=== PATIENT | female | born 1935 | race Caucasian/White ===

== ENCOUNTER 2016-08-06 00:17 | Inpatient (IN) | payer MEDICARE, MEDICAID ==
[2016-08-06] MEDS ORDERED: Albuterol-Ipratrop 3 mg / 0.5 (3 ml) UD ONE (00:21)
[2016-08-06] MEDS ORDERED: Albuterol-Ipratrop 3 mg / 0.5 (3 ml) UD INH STA ×2 (00:33→00:36)
[2016-08-06] MEDS ORDERED: Moxifloxacin IV 400mg/250ml NS 250 ML IV ONE (00:41)
--- NOTE | 2016-08-06 00:48 | C.PDOC ---
History Of Present Illness 81 year old female presents to the ED with daughter from [facility] with complaints of shortness of breath and wheezing. Patient has a history of advanced dementia and COPD. Patient's daughter denies any other complaints at this time. Time Seen by Provider: 08/06/16 00:32 Chief Complaint (Nursing): Respiratory Distress History Per: Patient, Family (daughter ) History/Exam Limitations: no limitations Onset/Duration Of Symptoms: Hrs Current Symptoms Are (Timing): Still Present Recent travel outside of the [place]: No Additional History Per: Half-Way Past Medical History Reviewed: Historical Data, Nursing Documentation, Vital Signs Vital Signs: Last Vital Signs Temp Pulse 81 08/06/16 00:38 Resp 40 H 08/06/16 00:29 BP 169/93 H 08/06/16 00:18 Pulse Ox 100 08/06/16 00:51 - Medical History PMH: Anxiety, Asthma, COPD, Dementia, HTN Family History: States: Unknown Family Hx - Social History Hx Alcohol Use: No Hx Substance Use: No - Immunization History Hx Tetanus Toxoid Vaccination: No Hx Influenza Vaccination: No Review Of Systems Constitutional: Negative for: Fever, Chills, Sweats Cardiovascular: Negative for: Palpitations Respiratory: Positive for: Shortness of Breath, Wheezing Gastrointestinal: Negative for: Nausea, Vomiting, Abdominal Pain, Diarrhea Physical Exam - Physical Exam Appears: Chronically Ill, Other (lethargic ) Skin: Warm, Dry Head: Other (Bitemporal wasting, icteric ) Oral Mucosa: Moist Neck: Supple Cardiovascular: Rhythm Regular Respiratory: No Rales, Rhonchi (scattered rhonci ), No Stridor, Wheezing, Other (poor air movement ) Gastrointestinal/Abdominal: Soft, No Tenderness, No Distention, No Guarding, No Rebound Extremity: No Tenderness Neurological/Psych: Other (awake, alert, unclear regarding orientation. ) ED Course And Treatment ECG: Interpreted By Me ECG Rhythm: Sinus Bradycardia ECG Interpretation: Normal Rate From EC (? peaked T^'s throughout) O2 Sat by Pulse Oximetry: 100 Pulse Ox Interpretation: Normal - Radiology CXR: Interpreted by Me CXR Interpretation: Yes: No Acute Disease, Other (small L effusion) Medical Decision Making Medical Decision Making: Discussed with daughter to reassure the patient is full code. Avelox in case of NH acquired lung infection (allergic to PCN, so no Zosyn) Disposition Doctor Will See Patient In The: Hospital - Disposition Disposition Time: 01:00 Condition: FAIR - Clinical Impression Clinical Impression: COPD (chronic obstructive pulmonary disease) - Scribe Statement The provider has reviewed the documentation as recorded by the Scribe Emerita Cerda All medical record entries made by the Scribe were at my direction and personally dictated by me. I have reviewed the chart and agree that the record accurately reflects my personal performance of the history, physical exam, medical decision making, and the department course for this patient. I have also personally directed, reviewed, and agree with the discharge instructions and disposition. Physician Patient Turnover Patient Signed Over To: Nixon Delcid Handoff Comments: dispo for adm to [facility] when w/u completed.
[2016-08-06 00:58] LABS: ABG ALLEN TEST POS; ARTERIAL BLOOD HGB O2 SAT 97.1 % (95.0-98.0); CARBOXYHEMOGLOBIN 1.5 % (0.5-1.5); DRAW SITE RRAD; HHB 0.2 % (0.0-5.0); METHEMOGLOBIN 1.2 % (0.0-3.0)
[2016-08-06 01:09] LABS: BASO # 0.1 K/uL (0.0-0.2); BASO % 0.4 % (0.0-2.0); EOS # 0.2 K/uL (0.0-0.7); EOS % 1.4 % (0.0-4.0); HEMATOCRIT 35.6 % (34.0-47.0); LYMPH # 3.3 K/uL (1.0-4.3); MEAN CELL VOLUME 83.9 fL (81.0-99.0); MEAN PLATELET VOLUME 8.2 fL (7.2-11.7); MONO # 0.8 K/uL (0.0-0.8); MONO % 4.8 % (0.0-10.0); RED CELL DISTRIBUTION WIDTH 13.1 % (11.5-14.5); WHITE BLOOD COUNT 15.7 K/uL (4.8-10.8)
[2016-08-06 01:18] LABS: CHLORIDE 91 mmol/L (98-107); SODIUM 131 mmol/L (132-148)
[2016-08-06 01:20] LABS: AST/SGOT 29 U/L (14-36); BILIRUBIN,TOTAL 0.6 mg/dL (0.2-1.3); CARBON DIOXIDE 26 mmol/L (22-30); GFR AFRICAN-AMERICAN > 60
[2016-08-06 01:21] LABS: ALB/GLOB RATIO 1.3 (1.0-2.1); ALKALINE PHOSPHATASE 57 U/L (38-126); ALT/SGPT 13 U/L (9-52); BLOOD UREA NITROGEN 20 mg/dL (7-17); CALCIUM 8.9 mg/dl (8.6-10.4); GLUCOSE,RANDOM 213 mg/dL (65-105); TOTAL PROTEIN 7.7 g/dL (6.3-8.3)
[2016-08-06] MEDS ORDERED: Sod Polystyrene Sulf 15 gm/60 ml Oral Susp PO ONE (01:25)
[2016-08-06] MEDS ORDERED: Calcium Gluconate 4.65 MEQ in Dextrose 5% In Water 100 ML IVPB ONE (01:25)
[2016-08-06] MEDS ORDERED: Moxifloxacin IV 400mg/250ml NS 250 ML IVPB ONE (01:26)
[2016-08-06] MEDS ORDERED: (Novolin R) Insulin Human Regular 100 units/ml vial IV ONE (01:26)
[2016-08-06] MEDS ORDERED: Dextrose 50% SYRINGE Inj (50 ml) IV STA (01:26)
[2016-08-06] MEDS ORDERED: (Novolin R) Insulin Human Regular 100 units/ml vial ONE (01:45)
[2016-08-06] MEDS ORDERED: Sod Polystyrene Sulf 15 gm/60 ml Oral Susp ONE (01:45)
[2016-08-06] MEDS ORDERED: Dextrose 50% SYRINGE Inj (50 ml) ONE (01:46)
[2016-08-06] MEDS ORDERED: Calcium Gluconate 4.65 mEq/10 ml Inj ONE (01:46)
[2016-08-06] MEDS ORDERED: Albuterol-Ipratrop 3 mg / 0.5 (3 ml) UD INH SCH (02:30)
[2016-08-06] MEDS ORDERED: (Novolog) Insulin Aspart, Recombinant 100 u/ml 10 ml vial SC SCH (02:30)
--- NOTE | 2016-08-06 02:37 | CP.PCM.CON ---
History of Present Illness - History of Present Illness History of Present Illness: 80yo F. PMHx DM type 2, HTN, dyslipidemia, Alzheimer's dementia, arthritis, asthma/COPD. p/w acute hypercarbic respiratory failure secondary to acute exacerbation of chronic obstructive pulmonary disease. Requiring BIPAP, admit to ICU. Review of Systems - Review of Systems Systems not reviewed;Unavailable: Altered Mental Status Past Patient History - Past Medical History & Family History Past Medical History?: Yes - Past Social History Smoking Status: Never Smoked - CARDIAC Hx Hypertension: Yes - PULMONARY Hx Asthma: Yes Hx Chronic Obstructive Pulmonary Disease (COPD): Yes - NEUROLOGICAL Hx Dementia: Yes - RENAL Other/Comment: HX UTI - ENDOCRINE/METABOLIC Hx Diabetes Mellitus Type 2: Yes - MUSCULOSKELETAL/RHEUMATOLOGICAL Hx Back Pain: Yes Hx Falls: Yes - PSYCHIATRIC Hx Anxiety: Yes Hx Substance Use: No - SURGICAL HISTORY Other/Comment: 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 - ANESTHESIA Hx Anesthesia: Yes Hx Anesthesia Reactions: No Meds Allergies/Adverse Reactions: Allergies Allergy/AdvReac Type Severity Reaction Status Date / Time codeine Allergy Verified 10/17/15 18:04 Penicillins Allergy Verified 10/17/15 18:04 - Medications Medications: Current Medications Albuterol/Ipratropium (Duoneb 3 Mg/0.5 Mg (3 Ml) Ud) 3 ml INH Q4H TANA Carvedilol (Coreg) 6.25 mg PO BID TANA Ferrous Sulfate (Feosol) 325 mg PO TID TANA Moxifloxacin HCl (Avelox Iv 400mg/250ml Ns) 250 mls @ 167 mls/hr IVPB Q24H TANA Sodium Chloride (Sodium Chloride 0.9%) 1,000 mls @ 100 mls/hr IV .Q10H TANA Insulin Aspart (Novolog) 0 unit SC Q6H TANA PRN Reason: Protocol Memantine (Namenda) 10 mg PO DAILY TANA Methylprednisolone (Solu-Medrol) 40 mg IV Q8H TANA Montelukast Sodium (Singulair) 10 mg PO HS TANA Physical Exam - Constitutional Appears: Well - Head Exam Head Exam: ATRAUMATIC, NORMAL INSPECTION, NORMOCEPHALIC - Eye Exam Eye Exam: EOMI, Normal appearance, PERRL Pupil Exam: NORMAL ACCOMODATION, PERRL - Respiratory Exam Respiratory Exam: Wheezes, NORMAL BREATHING PATTERN - Cardiovascular Exam Cardiovascular Exam: REGULAR RHYTHM - GI/Abdominal Exam GI & Abdominal Exam: Normal Bowel Sounds, Soft. absent: Tenderness - Neurological Exam Neurological exam: Alert, Altered - Psychiatric Exam Psychiatric exam: Flat Affect Results - Vital Signs Recent Vital Signs: Last Vital Signs Temp 98 F 08/06/16 02:24 Pulse 86 08/06/16 02:24 Resp 21 08/06/16 02:24 BP 131/59 L 08/06/16 02:24 Pulse Ox 100 08/06/16 02:24 - Labs Result Diagrams: 08/06/16 00:56 08/06/16 00:56 Labs: Laboratory Results - last 24 hr 08/06/16 08/06/16 08/06/16 00:54 00:56 00:58 WBC 15.7 H RBC 4.25 Hgb 11.0 Hct 35.6 MCV 83.9 D MCH 26.0 L MCHC 31.0 L RDW 13.1 Plt Count 193 MPV 8.2 Neut % (Auto) 72.4 Lymph % (Auto) 21.0 [place] % (Auto) 4.8 Eos % (Auto) 1.4 Baso % (Auto) 0.4 Neut # 11.3 H Lymph # 3.3 [place] # 0.8 Eos # 0.2 Baso # 0.1 Puncture Site Rrad pCO2 89 H* pO2 437 H HCO3 27.0 ABG pH 7.18 L* ABG Total CO2 35.9 H ABG O2 Saturation 99.8 H ABG Base Excess 2.7 ABG Hemoglobin 11.3 L ABG Carboxyhemoglobin 1.5 POC ABG HHb (Measured) 0.2 ABG Methemoglobin 1.2 Bobby Test Pos A-a O2 Difference 165.0 Respiratory Index 0.4 Hgb O2 Saturation 97.1 FiO2 100.0 Inspiratory BiPAP 12 Expiratory BiPAP 6 Crit Value Called To Tan arteaga rn Crit Value Called By Karuna bolanos Crit Value Read Back Y Blood Gas Notified Time 100 Sodium 131 L Potassium 6.0 H Chloride 91 L Carbon Dioxide 26 Anion Gap 20 BUN 20 H Creatinine 0.6 L Est GFR ( Amer) > 60 Est GFR (Non-Af Amer) > 60 Random Glucose 213 H Calcium 8.9 Total Bilirubin 0.6 AST 29 ALT 13 Alkaline Phosphatase 57 Troponin I < 0.0120 NT-Pro-B Natriuret Pep 537 Total Protein 7.7 Albumin 4.4 Globulin 3.3 Albumin/Globulin Ratio 1.3 Influenza Typ A,B (EIA) Negative for flu a/b Assessment & Plan (1) Chronic obstructive lung disease Assessment and Plan: 80yo F. PMHx DM type 2, HTN, dyslipidemia, Alzheimer's dementia, arthritis, asthma/COPD. p/w acute hypercarbic respiratory failure secondary to acute exacerbation of chronic obstructive pulmonary disease. Requiring BIPAP, admit to ICU. Neuro: acute metabolic encephalopathy secondary to hypercapnia Pulm: acute hypercapnic respiratory failure secondary to acute exacerbation of chronic obstructive pulmonary disease. Steroids, Duonebs, BIPAP. CV: hemodynamically stable, continue Coreg bid. holding Lisinopril with hyperkalemia. Renal: hyperkalemia, received kayexalate, albuterol, insulin and d50 in ED, will recheck BMP. NS@100 Endo: DM type 2, short acting insulin sliding scale, holding Januvia and Metformin. GI: NPO while on BIPAP. ID: leucocytosis but no obvious source of sepsis. currently CXR clear, f/u urinalysis. Empiric tx with Moxifloxacin. DVT proph - lovenox GI proph - not currently indicated Full code Critical Care time 45 minutes Status: Acute
[2016-08-06] MEDS ORDERED: MethylPREDNISolone 40 mg Vial IV SCH (03:00)
[2016-08-06] MEDS: Sodium Chloride 0.9% 1,000 ML IV SCH ×2 (03:30→14:00)
[2016-08-06] MEDS: MethylPREDNISolone 40 mg Vial IVP SCH ×3 (04:45→20:45)
[2016-08-06 08:14] LABS: RBC URINE 12 /hpf (0-3); URINE BACTERIA OCC (<OCC); URINE BILIRUBIN NEGATIVE (NEGATIVE); URINE BLOOD 3+ (NEGATIVE); URINE COLOR Yellow (YELLOW); URINE GLUCOSE (UA) 3+ mg/dL (Normal); URINE KETONE NEGATIVE (NEGATIVE); URINE LEUKOCYTE ESTERASE 3+ Leu/uL (Negative); URINE PROTEIN NEGATIVE (NEGATIVE); URINE UROBILINOGEN NORMAL mg/dL (0.2-1.0); WBC CLUMPS MOD /hpf; WBC URINE 155 /hpf (0-5)
[2016-08-06 08:18] LABS: ABG ALLEN TEST POS; ARTERIAL BLOOD HGB O2 SAT 95.5 % (95.0-98.0); CARBOXYHEMOGLOBIN 1.5 % (0.5-1.5); DRAW SITE RR
[2016-08-06] MEDS: (Novolog) Insulin Aspart, Recombinant 100 u/ml 10 ml vial SC SCH ×3 (08:37→17:12)
--- NOTE | 2016-08-06 10:00 | RAD ---
PROCEDURE: CHEST RADIOGRAPH, 1 VIEW HISTORY: SOB COMPARISON: Comparison 11/03/2015 FINDINGS: LUNGS: Mild linear atelectasis and or scarring left lung base PLEURA: No pneumothorax or pleural fluid seen. CARDIOVASCULAR: Mild cardiomegaly OSSEOUS STRUCTURES: Stable right shoulder replacement. High-riding left humeral head likely related to chronic rotator cuff injury VISUALIZED UPPER ABDOMEN: Normal. OTHER FINDINGS: None. IMPRESSION: Linear atelectasis and or scarring
[2016-08-06 10:35] LABS: BASO % 0.4 % (0.0-2.0); HEMATOCRIT 35.7 % (34.0-47.0); LYMPH # 1.1 K/uL (1.0-4.3); LYMPH % 10.5 % (20.0-40.0); MEAN CELL VOLUME 82.4 fL (81.0-99.0); MEAN CORPUSCULAR HEMOGLOBIN 26.2 pg (27.0-31.0); MEAN CORPUSCULAR HGB CONC 31.8 g/dL (33.0-37.0); MEAN PLATELET VOLUME 7.8 fL (7.2-11.7); MONO # 0.1 K/uL (0.0-0.8); MONO % 0.7 % (0.0-10.0); RED CELL DISTRIBUTION WIDTH 12.7 % (11.5-14.5); WHITE BLOOD COUNT 10.8 K/uL (4.8-10.8)
[2016-08-06] MEDS: Enoxaparin 40 mg Syringe SC SCH (10:43)
[2016-08-06 10:46] LABS: CHLORIDE 94 mmol/L (98-107); SODIUM 132 mmol/L (132-148)
[2016-08-06 10:48] LABS: GFR AFRICAN-AMERICAN > 60
[2016-08-06 10:49] LABS: ALB/GLOB RATIO 1.3 (1.0-2.1); ALKALINE PHOSPHATASE 54 U/L (38-126); ALT/SGPT 20 U/L (9-52); AST/SGOT 35 U/L (14-36); BILIRUBIN,TOTAL 0.9 mg/dL (0.2-1.3); BLOOD UREA NITROGEN 18 mg/dL (7-17); CARBON DIOXIDE 25 mmol/L (22-30); GLUCOSE,RANDOM 237 mg/dL (65-105); PHOSPHOROUS 2.7 mg/dL (2.5-4.5); POTASSIUM 5.9 mmol/L (3.6-5.2); TOTAL PROTEIN 7.7 g/dL (6.3-8.3)
[2016-08-06 10:50] LABS: CALCIUM 9.2 mg/dl (8.6-10.4); MAGNESIUM 1.3 mg/dL (1.6-2.3)
[2016-08-06] MEDS: Albuterol-Ipratrop 3 mg / 0.5 (3 ml) UD INH SCH ×4 (11:15→23:52)
[2016-08-06 12:47] LABS: ABG ALLEN TEST POS; DRAW SITE RR
[2016-08-07] MEDS: Sodium Chloride 0.9% 1,000 ML IV SCH ×2 (00:18→09:19)
[2016-08-07] MEDS: (Novolog) Insulin Aspart, Recombinant 100 u/ml 10 ml vial SC SCH ×5 (00:21→21:53)
[2016-08-07] MEDS: Moxifloxacin IV 400mg/250ml NS 250 ML IVPB SCH (02:12)
[2016-08-07] MEDS: Albuterol-Ipratrop 3 mg / 0.5 (3 ml) UD INH SCH ×5 (03:01→19:44)
[2016-08-07] MEDS: MethylPREDNISolone 40 mg Vial IVP SCH ×3 (04:40→21:03)
[2016-08-07] MEDS: Enoxaparin 40 mg Syringe SC SCH (09:18)
[2016-08-07 10:22] LABS: BASO % 0.1 % (0.0-2.0); HEMATOCRIT 33.7 % (34.0-47.0); LYMPH # 1.6 K/uL (1.0-4.3); LYMPH % 9.9 % (20.0-40.0); MEAN CELL VOLUME 82.5 fL (81.0-99.0); MEAN CORPUSCULAR HEMOGLOBIN 25.5 pg (27.0-31.0); MEAN CORPUSCULAR HGB CONC 30.9 g/dL (33.0-37.0); MEAN PLATELET VOLUME 7.8 fL (7.2-11.7); MONO # 0.6 K/uL (0.0-0.8); MONO % 3.5 % (0.0-10.0); PLATELET COUNT 181 K/uL (130-400); RED CELL DISTRIBUTION WIDTH 12.6 % (11.5-14.5); WHITE BLOOD COUNT 15.9 K/uL (4.8-10.8)
[2016-08-07 10:54] LABS: CHLORIDE 96 mmol/L (98-107); POTASSIUM 3.8 mmol/L (3.6-5.2); SODIUM 136 mmol/L (132-148)
[2016-08-07 10:56] LABS: BILIRUBIN,TOTAL 0.3 mg/dL (0.2-1.3); GFR AFRICAN-AMERICAN > 60
[2016-08-07 10:57] LABS: ALB/GLOB RATIO 1.3 (1.0-2.1); ALKALINE PHOSPHATASE 53 U/L (38-126); ALT/SGPT 14 U/L (9-52); AST/SGOT 21 U/L (14-36); BLOOD UREA NITROGEN 14 mg/dL (7-17); CARBON DIOXIDE 26 mmol/L (22-30); GLUCOSE,RANDOM 225 mg/dL (65-105); PHOSPHOROUS 2.1 mg/dL (2.5-4.5); TOTAL PROTEIN 6.9 g/dL (6.3-8.3)
[2016-08-07 10:58] LABS: CALCIUM 8.8 mg/dl (8.6-10.4); MAGNESIUM 1.4 mg/dL (1.6-2.3)
[2016-08-07 11:07] LABS: NEUTROPHIL 86 % (50-75); TOTAL CELLS COUNTED 100
[2016-08-07] MEDS ORDERED: Potassium Phosphate 15 MMOLE in Dextrose 5% In Water 250 ML IVPB ONE (11:21)
--- NOTE | 2016-08-07 11:21 | CP.CCUPN ---
CCU Subjective - Physician Review Events Since Last Encounter (Free Text): 08/07/16 11:20 Patient today is off BiPAP, alert and awake. Mild expiratory wheezing noted. Cough noted, complaining of pain generalized. Denies any chest pain. Edema noted in the legs. CCU Objective - Vital Signs / Intake & Output Vital Signs (Last 4 hours): Vital Signs Temp Pulse Resp BP Pulse Ox 08/07/16 11:00 103 H 20 171/79 H 97 08/07/16 10:00 101 H 24 178/76 H 98 08/07/16 09:00 87 23 172/75 H 97 08/07/16 08:00 98.0 F 80 21 185/83 H 100 Intake and Output (Last 8hrs): Intake & Output 08/06/16 08/07/16 08/07/16 22:59 06:59 14:59 Intake Total 700 800 720 Output Total 550 1195 300 Balance 150 -395 420 Intake: Intake, IV Amount 500 800 500 Right Hand 400 Left Hand 500 800 100 Oral 200 220 Output: Urine 550 1195 300 Urethral (De Guzman) 550 1195 300 - Physical Exam Narrative Physical Exam (Free Text): 08/07/16 11:20 Chest bilateral good air entry, regular heart sound, nontender abdomen, extremities edema generalized to noted - Medications Active Medications: Active Medications Generic Name Dose Route Start Last Admin Trade Name Freq PRN Reason Stop Dose Admin Acetaminophen 650 mg 08/06/16 22:00 08/06/16 21:45 Tylenol 325mg Tab PO 650 mg Q6H PRN Administration Pain, moderate (4-7) Albuterol/Ipratropium 3 ml 08/06/16 12:00 08/07/16 11:07 Duoneb 3 Mg/0.5 Mg (3 Ml) Ud INH 3 ml RQ4 TANA Administration Amlodipine Besylate 5 mg 08/07/16 11:17 Norvasc PO 08/07/16 11:18 STAT STA Amlodipine Besylate 5 mg 08/08/16 10:00 Norvasc PO DAILY TANA Carvedilol 6.25 mg 08/06/16 10:00 08/07/16 09:18 Coreg PO 6.25 mg BID TANA Administration Enoxaparin Sodium 40 mg 08/06/16 10:00 08/07/16 09:18 Lovenox SC 40 mg DAILY TANA Administration Ferrous Sulfate 325 mg 04/22/17 10:00 08/07/16 09:18 Feosol PO 325 mg TID TANA Administration Moxifloxacin HCl 250 mls @ 167 mls/hr 08/07/16 02:30 08/07/16 02:12 Avelox Iv 400mg/250ml Ns IVPB 167 mls/hr Q24H TANA Administration Insulin Aspart 0 unit 08/06/16 06:00 08/07/16 06:00 Novolog SC 3 unit Q6 TANA Administration Protocol Memantine 10 mg 08/06/16 22:00 08/07/16 01:25 Namenda PO 10 mg HS TANA Administration Methylprednisolone 40 mg 08/07/16 10:00 08/07/16 09:18 Solu-Medrol IVP 40 mg Q12 TANA Administration Montelukast Sodium 10 mg 08/06/16 22:00 08/06/16 21:44 Singulair PO 10 mg HS TANA Administration - Patient Studies Lab Studies: Microbiology Studies 08/06/16 07:58 MRSA Culture (Admit) - Final Nose MRSA NOT DETECTED 08/06/16 Unknown Urine Culture - Preliminary Urine,De Guzman Gram Negative Magan Lab Studies 08/07/16 08/07/16 08/07/16 Range/Units 10:03 06:43 00:05 WBC 15.9 H (4.8-10.8) K/uL RBC 4.08 (3.80-5.20) Mil/uL Hgb 10.4 L (11.0-16.0) g/dL Hct 33.7 L (34.0-47.0) % MCV 82.5 (81.0-99.0) fL MCH 25.5 L (27.0-31.0) pg MCHC 30.9 L (33.0-37.0) g/dL RDW 12.6 (11.5-14.5) % Plt Count 181 (130-400) K/uL MPV 7.8 (7.2-11.7) fL Neut % (Auto) 86.5 H (50.0-75.0) % Lymph % (Auto) 9.9 L (20.0-40.0) % [place] % (Auto) 3.5 (0.0-10.0) % Eos % (Auto) 0.0 (0.0-4.0) % Baso % (Auto) 0.1 (0.0-2.0) % Neut # 13.7 H (1.8-7.0) K/uL Lymph # 1.6 (1.0-4.3) K/uL [place] # 0.6 (0.0-0.8) K/uL Eos # 0.0 (0.0-0.7) K/uL Baso # 0.0 (0.0-0.2) K/uL Neutrophils % (Manual) 86 H (50-75) % Band Neutrophils % 1 (0-2) % Lymphocytes % (Manual) 10 L (20-40) % Monocytes % (Manual) 3 (0-10) % Platelet Estimate Normal (NORMAL) Polychromasia Slight Hypochromasia (manual) Slight Poikilocytosis (manual Slight Anisocytosis (manual) Slight Ovalocytes Slight Puncture Site pCO2 (35-45) mm/Hg pO2 (80-100) mm/Hg HCO3 (21-28) mmol/L ABG pH (7.35-7.45) ABG Total CO2 (22-28) mmol/L ABG O2 Saturation (95-98) % ABG Base Excess (-2.0-3.0) mmol/L Bobby Test ABG Potassium (3.6-5.2) mmol/L A-a O2 Difference mm/Hg Respiratory Index Glucose (65-105) mg/dl Lactate (0.7-2.1) mmol/L FiO2 % Inspiratory BiPAP Expiratory BiPAP Sodium 136 (132-148) mmol/L Potassium 3.8 (3.6-5.2) mmol/L Chloride 96 L (98-107) mmol/L Carbon Dioxide 26 (22-30) mmol/L Anion Gap 18 (10-20) BUN 14 (7-17) mg/dL Creatinine 0.5 L (0.7-1.2) MG/DL Est GFR ( Amer) > 60 Est GFR (Non-Af Amer) > 60 POC Glucose (mg/dL) 250 H 263 H (65-110) mg/dL Random Glucose 225 H (65-105) mg/dL Calcium 8.8 (8.6-10.4) mg/dl Phosphorus 2.1 L (2.5-4.5) mg/dL Magnesium 1.4 L (1.6-2.3) mg/dL Total Bilirubin 0.3 (0.2-1.3) mg/dL AST 21 (14-36) U/L ALT 14 (9-52) U/L Alkaline Phosphatase 53 (38-126) U/L Total Protein 6.9 (6.3-8.3) g/dL Albumin 3.9 (3.5-5.0) g/dL Globulin 2.9 (2.2-3.9) gm/dL Albumin/Globulin Ratio 1.3 (1.0-2.1) Arterial Blood Potassium (3.6-5.2) mmol/L 08/06/16 08/06/16 08/06/16 Range/Units 17:07 12:41 11:51 WBC (4.8-10.8) K/uL RBC (3.80-5.20) Mil/uL Hgb (11.0-16.0) g/dL Hct (34.0-47.0) % MCV (81.0-99.0) fL MCH (27.0-31.0) pg MCHC (33.0-37.0) g/dL RDW (11.5-14.5) % Plt Count (130-400) K/uL MPV (7.2-11.7) fL Neut % (Auto) (50.0-75.0) % Lymph % (Auto) (20.0-40.0) % [place] % (Auto) (0.0-10.0) % Eos % (Auto) (0.0-4.0) % Baso % (Auto) (0.0-2.0) % Neut # (1.8-7.0) K/uL Lymph # (1.0-4.3) K/uL [place] # (0.0-0.8) K/uL Eos # (0.0-0.7) K/uL Baso # (0.0-0.2) K/uL Neutrophils % (Manual) (50-75) % Band Neutrophils % (0-2) % Lymphocytes % (Manual) (20-40) % Monocytes % (Manual) (0-10) % Platelet Estimate (NORMAL) Polychromasia Hypochromasia (manual) Poikilocytosis (manual Anisocytosis (manual) Ovalocytes Puncture Site Rr pCO2 52 H (35-45) mm/Hg pO2 87 (80-100) mm/Hg HCO3 27.7 (21-28) mmol/L ABG pH 7.37 (7.35-7.45) ABG Total CO2 31.7 H (22-28) mmol/L ABG O2 Saturation 98.8 H (95-98) % ABG Base Excess 3.6 H (-2.0-3.0) mmol/L Bobby Test Pos ABG Potassium 4.5 (3.6-5.2) mmol/L A-a O2 Difference 98.0 mm/Hg Respiratory Index 1.1 Glucose 260 H (65-105) mg/dl Lactate 1.3 (0.7-2.1) mmol/L FiO2 35.0 % Inspiratory BiPAP 16 Expiratory BiPAP 8 Sodium 133.0 (132-148) mmol/L Potassium (3.6-5.2) mmol/L Chloride 101.0 (98-107) mmol/L Carbon Dioxide (22-30) mmol/L Anion Gap (10-20) BUN (7-17) mg/dL Creatinine (0.7-1.2) MG/DL Est GFR ( Amer) Est GFR (Non-Af Amer) POC Glucose (mg/dL) 240 H 266 H (65-110) mg/dL Random Glucose (65-105) mg/dL Calcium (8.6-10.4) mg/dl Phosphorus (2.5-4.5) mg/dL Magnesium (1.6-2.3) mg/dL Total Bilirubin (0.2-1.3) mg/dL AST (14-36) U/L ALT (9-52) U/L Alkaline Phosphatase (38-126) U/L Total Protein (6.3-8.3) g/dL Albumin (3.5-5.0) g/dL Globulin (2.2-3.9) gm/dL Albumin/Globulin Ratio (1.0-2.1) Arterial Blood Potassium 4.5 (3.6-5.2) mmol/L Laboratory Results - last 24 hr 08/06/16 08/06/16 08/06/16 11:51 12:41 17:07 WBC RBC Hgb Hct MCV MCH MCHC RDW Plt Count MPV Neut % (Auto) Lymph % (Auto) [place] % (Auto) Eos % (Auto) Baso % (Auto) Neut # Lymph # [place] # Eos # Baso # Neutrophils % (Manual) Band Neutrophils % Lymphocytes % (Manual) Monocytes % (Manual) Platelet Estimate Polychromasia Hypochromasia (manual) Poikilocytosis (manual Anisocytosis (manual) Ovalocytes Puncture Site Rr pCO2 52 H pO2 87 HCO3 27.7 ABG pH 7.37 ABG Total CO2 31.7 H ABG O2 Saturation 98.8 H ABG Base Excess 3.6 H Bobby Test Pos ABG Potassium 4.5 A-a O2 Difference 98.0 Respiratory Index 1.1 Sodium 133.0 Chloride 101.0 Glucose 260 H Lactate 1.3 FiO2 35.0 Inspiratory BiPAP 16 Expiratory BiPAP 8 Potassium Carbon Dioxide Anion Gap BUN Creatinine Est GFR ( Amer) Est GFR (Non-Af Amer) POC Glucose (mg/dL) 266 H 240 H Random Glucose Calcium Phosphorus Magnesium Total Bilirubin AST ALT Alkaline Phosphatase Total Protein Albumin Globulin Albumin/Globulin Ratio Arterial Blood Potassium 4.5 08/07/16 08/07/16 08/07/16 00:05 06:43 10:03 WBC 15.9 H RBC 4.08 Hgb 10.4 L Hct 33.7 L MCV 82.5 MCH 25.5 L MCHC 30.9 L RDW 12.6 Plt Count 181 MPV 7.8 Neut % (Auto) 86.5 H Lymph % (Auto) 9.9 L [place] % (Auto) 3.5 Eos % (Auto) 0.0 Baso % (Auto) 0.1 Neut # 13.7 H Lymph # 1.6 [place] # 0.6 Eos # 0.0 Baso # 0.0 Neutrophils % (Manual) 86 H Band Neutrophils % 1 Lymphocytes % (Manual) 10 L Monocytes % (Manual) 3 Platelet Estimate Normal Polychromasia Slight Hypochromasia (manual) Slight Poikilocytosis (manual Slight Anisocytosis (manual) Slight Ovalocytes Slight Puncture Site pCO2 pO2 HCO3 ABG pH ABG Total CO2 ABG O2 Saturation ABG Base Excess Bobby Test ABG Potassium A-a O2 Difference Respiratory Index Sodium 136 Chloride 96 L Glucose Lactate FiO2 Inspiratory BiPAP Expiratory BiPAP Potassium 3.8 Carbon Dioxide 26 Anion Gap 18 BUN 14 Creatinine 0.5 L Est GFR ( Amer) > 60 Est GFR (Non-Af Amer) > 60 POC Glucose (mg/dL) 263 H 250 H Random Glucose 225 H Calcium 8.8 Phosphorus 2.1 L Magnesium 1.4 L Total Bilirubin 0.3 AST 21 ALT 14 Alkaline Phosphatase 53 Total Protein 6.9 Albumin 3.9 Globulin 2.9 Albumin/Globulin Ratio 1.3 Arterial Blood Potassium Review of Systems - Review of Systems All systems: reviewed and no additional remarkable complaints except Review of Systems: No headache. Patient has a severe osteoarthritis, associate with the pain. Edema noted. Patient has a history of asthma. Critical Care Progress Note - Nutrition Nutrition: Nutrition Category Date Time Status Consistent Carbohydrate [DIET] Diets 08/06/16 Lunch Active Assessment/Plan (1) Asthma exacerbation Assessment and plan: Patient with a severe acute exacerbation of asthma. With the CO2 retention. Currently off BiPAP. Bronchi dilators pain Radius corticosteroids. Continue the current treatment. Supplement potassium, magnesium, and david Cancer the patient to telemetry. Current Visit: No Status: Acute (2) Chronic obstructive lung disease Current Visit: Yes Status: Acute (3) Hyperkalemia Current Visit: Yes Status: Acute
[2016-08-08] MEDS: Albuterol-Ipratrop 3 mg / 0.5 (3 ml) UD INH SCH ×7 (00:21→23:51)
[2016-08-08] MEDS: Moxifloxacin IV 400mg/250ml NS 250 ML IVPB SCH (03:07)
[2016-08-08] MEDS: (Novolog) Insulin Aspart, Recombinant 100 u/ml 10 ml vial SC SCH ×4 (08:15→22:37)
--- NOTE | 2016-08-08 09:23 | HP ---
The patient is an 81-year-old female admitted to the hospital with chief complaint of shortness of br eath, wheeze, fatigue, tiredness. The patient found to be in respiratory failure. The patient came to the ER, put on BiPAP, found to be severely acidotic and advised admission to ICU. The patient ___ __ smoker. PHYSICAL EXAMINATION: GENERAL: On admission, is awake, but lethargic. VITAL SIGNS: Temperature 98, pulse 90. HEENT: Within normal limits. NECK: Supple. CHEST: Symmetrical. HEART: Regular. ABDOMEN: Soft. EXTREMITIES: No edema. The patient suffers from respiratory failure. The patient placed on bedrest, supportive care. Brenda Vazquez MD cc: [id number] TT: 08/07/2016 09:42:21 en
[2016-08-08] MEDS: MethylPREDNISolone 40 mg Vial IVP SCH ×2 (10:30→22:35)
[2016-08-08] MEDS: Enoxaparin 40 mg Syringe SC SCH (10:45)
[2016-08-08] MEDS ORDERED: Imipenem/Cilastatin 250 MG in Sodium Chloride 100 ML IVPB SCH (10:45)
--- NOTE | 2016-08-08 11:33 | CP.PCM.CON ---
History of Present Illness - History of Present Illness History of Present Illness: 80yo F. PMHx DM type 2, HTN, dyslipidemia, Alzheimer's dementia, arthritis, asthma/COPD. p/w acute hypercarbic respiratory failure secondary to acute exacerbation of chronic obstructive pulmonary disease. Requiring BIPAP, admitted to ICU now downgraded to reg floor HAS ESBL+ Proteus in urine await cultures Cont IV rx Past Patient History - Past Medical History & Family History Past Medical History?: Yes - Past Social History Smoking Status: Never Smoked - CARDIAC Hx Hypertension: Yes - PULMONARY Hx Asthma: Yes Hx Chronic Obstructive Pulmonary Disease (COPD): Yes - NEUROLOGICAL Hx Dementia: Yes - HEENT Hx HEENT Problems: No - RENAL Hx Chronic Kidney Disease: No Other/Comment: HX UTI - ENDOCRINE/METABOLIC Hx Endocrine Disorders: Yes Hx Diabetes Mellitus Type 2: Yes - HEMATOLOGICAL/ONCOLOGICAL Hx Blood Disorders: No - INTEGUMENTARY Hx Dermatological Problems: No - MUSCULOSKELETAL/RHEUMATOLOGICAL Hx Back Pain: Yes Hx Falls: Yes - PSYCHIATRIC Hx Anxiety: Yes Hx Substance Use: No - SURGICAL HISTORY Other/Comment: 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 - ANESTHESIA Hx Anesthesia: Yes Hx Anesthesia Reactions: No Meds Allergies/Adverse Reactions: Allergies Allergy/AdvReac Type Severity Reaction Status Date / Time codeine Allergy Verified 10/17/15 18:04 Penicillins Allergy Verified 10/17/15 18:04 - Medications Medications: Current Medications Acetaminophen (Tylenol 325mg Tab) 650 mg PO Q6H PRN PRN Reason: Pain, moderate (4-7) Last Admin: 08/06/16 21:45 Dose: 650 mg Albuterol/Ipratropium (Duoneb 3 Mg/0.5 Mg (3 Ml) Ud) 3 ml INH RQ4 [facility] Last Admin: 08/08/16 11:30 Dose: 3 ml Amlodipine Besylate (Norvasc) 10 mg PO DAILY [facility] Last Admin: 08/08/16 10:28 Dose: 10 mg Carvedilol (Coreg) 12.5 mg PO BID [facility] Last Admin: 08/08/16 10:28 Dose: 12.5 mg Enoxaparin Sodium (Lovenox) 40 mg SC DAILY [facility] Last Admin: 08/08/16 10:45 Dose: 40 mg Famotidine (Pepcid) 20 mg IVP DAILY [facility] Last Admin: 08/08/16 10:30 Dose: 20 mg Ferrous Sulfate (Feosol) 325 mg PO TID [facility] Last Admin: 08/08/16 10:29 Dose: 325 mg Furosemide (Lasix) 20 mg PO DAILY [facility] Last Admin: 08/08/16 10:29 Dose: 20 mg Moxifloxacin HCl (Avelox Iv 400mg/250ml Ns) 250 mls @ 167 mls/hr IVPB Q24H [facility] Last Admin: 08/08/16 03:07 Dose: 167 mls/hr Imipenem/Cilastatin Sodium 250 (mg/ Sodium Chloride) 100 mls @ 100 mls/hr IVPB Q6H [facility] Insulin Aspart (Novolog) 0 unit SC ACHS TANA PRN Reason: Protocol Last Admin: 08/08/16 08:15 Dose: 3 unit Memantine (Namenda) 10 mg PO HS [facility] Last Admin: 08/07/16 21:03 Dose: 10 mg Methylprednisolone (Solu-Medrol) 40 mg IVP Q12 [facility] Last Admin: 08/08/16 10:30 Dose: 40 mg Montelukast Sodium (Singulair) 10 mg PO [facility] Last Admin: 08/07/16 21:03 Dose: 10 mg Tramadol HCl (Ultram) 25 mg PO TID PRN PRN Reason: Pain, moderate (4-7) Results - Vital Signs Recent Vital Signs: Last Vital Signs Temp 98.3 F 08/08/16 08:13 Pulse 89 08/08/16 08:13 Resp 20 08/08/16 08:13 BP 198/91 H 08/08/16 10:29 Pulse Ox 98 08/08/16 08:13 - Labs Result Diagrams: 08/07/16 10:03 08/07/16 10:03 Labs: Laboratory Results - last 24 hr 08/07/16 08/07/16 08/07/16 11:28 16:01 21:22 POC Glucose (mg/dL) 330 H 303 H 302 H 08/08/16 07:15 POC Glucose (mg/dL) 253 H
--- NOTE | 2016-08-08 12:30 | CP.PCM.CON ---
History of Present Illness - History of Present Illness History of Present Illness: Sheri is a 80-year-old lady with history of type 2 diabetes, hypertension, dyslipidemia, Alzheimer type dementia with debility. She had history of arthritis and she was visiting in [place] and stayed in the hospital and [facility] for the last few years.also with asthma COPD requiring B agonist and steroid, now brought by her daughter with SOB from [facility] found with hypercapnic respiratory failure Review of Systems - Review of Systems Systems not reviewed;Unavailable: Respiratory Distress - Constitutional Constitutional: Anorexia, Weakness - EENT Eyes: absent: Discharge Ears: Dizziness. absent: Ear Discharge Nose/Mouth/Throat: absent: Epistaxis - Cardiovascular Cardiovascular: absent: Acrocyanosis, Chest Pain, Edema, Palpitations, Syncope - Respiratory Respiratory: Cough, Dyspnea, Dyspnea on Exertion. absent: Hemoptysis - Gastrointestinal Gastrointestinal: absent: Abdominal Pain, Diarrhea, Hematochezia, Vomiting - Genitourinary Genitourinary: absent: Change in Urinary Stream Past Patient History - Past Medical History & Family History Past Medical History?: Yes - Past Social History Smoking Status: Never Smoked - CARDIAC Hx Hypertension: Yes - PULMONARY Hx Asthma: Yes Hx Chronic Obstructive Pulmonary Disease (COPD): Yes - NEUROLOGICAL Hx Dementia: Yes - HEENT Hx HEENT Problems: No - RENAL Hx Chronic Kidney Disease: No Other/Comment: HX UTI - ENDOCRINE/METABOLIC Hx Endocrine Disorders: Yes Hx Diabetes Mellitus Type 2: Yes - HEMATOLOGICAL/ONCOLOGICAL Hx Blood Disorders: No - INTEGUMENTARY Hx Dermatological Problems: No - MUSCULOSKELETAL/RHEUMATOLOGICAL Hx Back Pain: Yes Hx Falls: Yes - PSYCHIATRIC Hx Anxiety: Yes Hx Substance Use: No - SURGICAL HISTORY Other/Comment: 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 - ANESTHESIA Hx Anesthesia: Yes Hx Anesthesia Reactions: No Meds Allergies/Adverse Reactions: Allergies Allergy/AdvReac Type Severity Reaction Status Date / Time codeine Allergy Verified 10/17/15 18:04 Penicillins Allergy Verified 10/17/15 18:04 - Medications Medications: Current Medications Acetaminophen (Tylenol 325mg Tab) 650 mg PO Q6H PRN PRN Reason: Pain, moderate (4-7) Last Admin: 08/06/16 21:45 Dose: 650 mg Albuterol/Ipratropium (Duoneb 3 Mg/0.5 Mg (3 Ml) Ud) 3 ml INH RQ4 [facility] Last Admin: 08/08/16 11:30 Dose: 3 ml Amlodipine Besylate (Norvasc) 10 mg PO DAILY [facility] Last Admin: 08/08/16 10:28 Dose: 10 mg Carvedilol (Coreg) 12.5 mg PO BID [facility] Last Admin: 08/08/16 10:28 Dose: 12.5 mg Enoxaparin Sodium (Lovenox) 40 mg SC DAILY [facility] Last Admin: 08/08/16 10:45 Dose: 40 mg Famotidine (Pepcid) 20 mg IVP DAILY [facility] Last Admin: 08/08/16 10:30 Dose: 20 mg Ferrous Sulfate (Feosol) 325 mg PO TID [facility] Last Admin: 08/08/16 10:29 Dose: 325 mg Furosemide (Lasix) 20 mg PO DAILY [facility] Last Admin: 08/08/16 10:29 Dose: 20 mg Moxifloxacin HCl (Avelox Iv 400mg/250ml Ns) 250 mls @ 167 mls/hr IVPB Q24H [facility] Last Admin: 08/08/16 03:07 Dose: 167 mls/hr Imipenem/Cilastatin Sodium 250 (mg/ Sodium Chloride) 100 mls @ 100 mls/hr IVPB Q6H [facility] Insulin Aspart (Novolog) 0 unit SC ACHS [facility] PRN Reason: Protocol Last Admin: 08/08/16 08:15 Dose: 3 unit Memantine (Namenda) 10 mg PO [facility] Last Admin: 08/07/16 21:03 Dose: 10 mg Methylprednisolone (Solu-Medrol) 40 mg IVP Q12 [facility] Last Admin: 08/08/16 10:30 Dose: 40 mg Montelukast Sodium (Singulair) 10 mg PO [facility] Last Admin: 08/07/16 21:03 Dose: 10 mg Tramadol HCl (Ultram) 25 mg PO TID PRN PRN Reason: Pain, moderate (4-7) Physical Exam - Constitutional Appears: Non-toxic - Head Exam Head Exam: ATRAUMATIC - Eye Exam Eye Exam: EOMI - ENT Exam ENT Exam: Mucous Membranes Moist - Neck Exam Neck exam: Negative for: Lymphadenopathy, Thyromegaly - Respiratory Exam Respiratory Exam: Rhonchi, Wheezes. absent: Rales - Cardiovascular Exam Cardiovascular Exam: REGULAR RHYTHM, Systolic Murmur - GI/Abdominal Exam GI & Abdominal Exam: Normal Bowel Sounds. absent: Organomegaly - Rectal Exam Rectal Exam: Deferred - Extremities Exam Extremities exam: Positive for: normal capillary refill. Negative for: calf tenderness - Neurological Exam Neurological exam: Alert, Oriented x3 - Psychiatric Exam Psychiatric exam: Normal Affect - Skin Skin Exam: Dry Results - Vital Signs Recent Vital Signs: Last Vital Signs Temp 98.3 F 08/08/16 08:13 Pulse 89 08/08/16 08:13 Resp 20 08/08/16 08:13 BP 198/91 H 08/08/16 10:29 Pulse Ox 98 08/08/16 08:13 - Labs Result Diagrams: 08/07/16 10:03 08/07/16 10:03 Labs: Laboratory Results - last 24 hr 08/07/16 08/07/16 08/08/16 16:01 21:22 07:15 POC Glucose (mg/dL) 303 H 302 H 253 H Assessment & Plan (1) Respiratory failure Status: Acute Comment: pco2 52 seen by pulm (2) Complaint of debility and malaise Status: Chronic (3) Diabetes 1.5, managed as type 2 Status: Chronic (4) Hypertension Status: Chronic (5) COPD (chronic obstructive pulmonary disease) Status: Acute
--- NOTE | 2016-08-08 13:56 | RAD ---
Obstructive series History: Abdominal distention. Comparison: Chest radiograph from 08/06/2016. Findings: Single view of the chest demonstrates mild increased pulmonary vascular congestion. There is blunting of the left costophrenic angle which could represent a small pleural effusion. Biapical pleural parenchymal thickening. Right shoulder hardware noted. Degenerative changes of the left shoulder. Bowel: Nonspecific bowel gas pattern. The bowel gas pattern does not demonstrate air-fluid levels. Extensive stool throughout the colon. Extensive scoliosis. Degenerative changes of the osseous structures. Surgical clips in the right upper quadrant of the abdomen. Impression: Nonspecific/nonobstructive bowel gas pattern. Extensive stool throughout the colon. If suspicion for bowel obstruction process, CT abdomen pelvis should be obtained.
--- NOTE | 2016-08-08 15:24 | CP.PCM.PN ---
Subjective - Date & Time of Evaluation Date of Evaluation: 08/08/16 Time of Evaluation: 09:40 - Subjective Subjective: PGY2 Medicine Note - Dr. Holder's Service: Patient seen and evaluated at bedside this AM. Patient reporting reproducible chest pain since yesterday and requesting tramadol. Patient denies associated SOB, acid reflux, diaphoresis. Patient denies radiation of pain. Patient also denies cough although she is coughing in front of me. Patient reports bowel movement last night. Paitnet reports diffuse abdominal pain. Objective - Vital Signs/Intake and Output Vital Signs (last 24 hours): Temp Pulse Resp BP Pulse Ox 98.3 F 89 20 198/91 H 98 08/08/16 08:13 08/08/16 08:13 08/08/16 08:13 08/08/16 10:29 08/08/16 08:13 Intake and Output: 08/08/16 08/08/16 06:59 18:59 Intake Total 100 450 Output Total 1000 2250 Balance -900 -1800 - Medications Medications: Current Medications Acetaminophen (Tylenol 325mg Tab) 650 mg PO Q6H PRN PRN Reason: Pain, moderate (4-7) Last Admin: 08/06/16 21:45 Dose: 650 mg Albuterol/Ipratropium (Duoneb 3 Mg/0.5 Mg (3 Ml) Ud) 3 ml INH RQ4 [facility] Last Admin: 08/08/16 11:30 Dose: 3 ml Amlodipine Besylate (Norvasc) 10 mg PO DAILY [facility] Last Admin: 08/08/16 10:28 Dose: 10 mg Carvedilol (Coreg) 12.5 mg PO BID [facility] Last Admin: 08/08/16 10:28 Dose: 12.5 mg Enoxaparin Sodium (Lovenox) 40 mg SC DAILY [facility] Last Admin: 08/08/16 10:45 Dose: 40 mg Famotidine (Pepcid) 20 mg IVP DAILY [facility] Last Admin: 08/08/16 10:30 Dose: 20 mg Ferrous Sulfate (Feosol) 325 mg PO TID [facility] Last Admin: 08/08/16 13:22 Dose: 325 mg Furosemide (Lasix) 20 mg PO DAILY [facility] Last Admin: 08/08/16 10:29 Dose: 20 mg Moxifloxacin HCl (Avelox Iv 400mg/250ml Ns) 250 mls @ 167 mls/hr IVPB Q24H [facility] Last Admin: 08/08/16 03:07 Dose: 167 mls/hr Insulin Aspart (Novolog) 0 unit SC ACHS [facility] PRN Reason: Protocol Last Admin: 08/08/16 12:00 Dose: Not Given Memantine (Namenda) 10 mg PO HS [facility] Last Admin: 08/07/16 21:03 Dose: 10 mg Methylprednisolone (Solu-Medrol) 40 mg IVP Q12 [facility] Last Admin: 08/08/16 10:30 Dose: 40 mg Montelukast Sodium (Singulair) 10 mg PO HS [facility] Last Admin: 08/07/16 21:03 Dose: 10 mg Tramadol HCl (Ultram) 25 mg PO TID PRN PRN Reason: Pain, moderate (4-7) - Labs Labs: 08/07/16 10:03 08/07/16 10:03 - Constitutional Appears: Non-toxic, No Acute Distress - Head Exam Head Exam: NORMAL INSPECTION - Eye Exam Eye Exam: EOMI - ENT Exam ENT Exam: Mucous Membranes Moist - Respiratory Exam Respiratory Exam: Chest Wall Tenderness, Clear to Ausculation Bilateral, NORMAL BREATHING PATTERN. absent: Rales, Rhonchi, Wheezes - Cardiovascular Exam Cardiovascular Exam: REGULAR RHYTHM, +S1, +S2. absent: Gallop, Rubs, Murmur - GI/Abdominal Exam GI & Abdominal Exam: Distended, Guarding, Tenderness - Extremities Exam Extremities Exam: Normal Capillary Refill. absent: Pedal Edema - Neurological Exam Neurological Exam: Alert, Oriented x3 - Psychiatric Exam Psychiatric exam: Normal Affect, Normal Mood - Skin Skin Exam: Normal Color, Warm Assessment and Plan - Assessment and Plan (Free Text) Assessment: COPD exacerbation DuoNeb 3ml INH RQ4 [facility] Solu-Medrol 40mg IVP Q12H Singulair 10mg PO HS Pneumonia Avelox 400mg IVPB daily CXR 08/06/16 - Linear atelectasis and/or scarring (please see full report) ID consult - Dr. Bailey - help appreciated Costochondritis Tramdol 25mg PO TID PRN SoluMedrol 40mg IVP Q12 Tylenol 650mg PO Q6H PRN Constipation Obstructive series 08/08/16 - extensive stool in colon. no air fluid levels. ( please see full report in meditech) Colace 100mg PO BID Miralax 17gm PO daily [facility] RISS Accuchecks HTN Coreg 12.5mg PO BID (increased from 6.25mg on 08/08/16) Norvasc 10mg PO daily (increased from 5mg on 08/08/16) Lasix 20mg PO daily Cardio consult - Dr. nAderson - help appreciated, f/urecs Alzheimer's Namenda 10mg PO HS Prophylaxis Lovenox 40mg SC daily Protonix 40mg PO daily [facility] All management per Dr. Holder
[2016-08-08] MEDS: POLYETHYLENE GLYCOL 3350 17 GM/Dose PACKET PO SCH (17:51)
--- NOTE | 2016-08-08 18:10 | CARD ---
APPROVED REPORT EKG Measurement Heart [id number] <Conclusion> Normal sinus rhythm Minimal voltage criteria for LVH, may be normal variant Early repolarization Borderline ECG
[2016-08-09] MEDS: Moxifloxacin IV 400mg/250ml NS 250 ML IVPB SCH (02:27)
[2016-08-09] MEDS: Albuterol-Ipratrop 3 mg / 0.5 (3 ml) UD INH SCH ×5 (04:00→19:30)
[2016-08-09 08:10] LABS: BASO % 0.4 % (0.0-2.0); EOS % 0.4 % (0.0-4.0); HEMATOCRIT 36.3 % (34.0-47.0); LYMPH # 1.3 K/uL (1.0-4.3); MEAN CELL VOLUME 81.9 fL (81.0-99.0); MEAN CORPUSCULAR HEMOGLOBIN 25.5 pg (27.0-31.0); MEAN CORPUSCULAR HGB CONC 31.1 g/dL (33.0-37.0); MEAN PLATELET VOLUME 8.3 fL (7.2-11.7); MONO # 0.5 K/uL (0.0-0.8); MONO % 4.7 % (0.0-10.0); RED CELL DISTRIBUTION WIDTH 13.3 % (11.5-14.5); WHITE BLOOD COUNT 9.9 K/uL (4.8-10.8)
[2016-08-09 08:16] LABS: CHLORIDE 94 mmol/L (98-107); SODIUM 132 mmol/L (132-148)
[2016-08-09 08:18] LABS: ALKALINE PHOSPHATASE 45 U/L (38-126); AST/SGOT 37 U/L (14-36); CARBON DIOXIDE 25 mmol/L (22-30); GFR AFRICAN-AMERICAN > 60; TOTAL PROTEIN 7.3 g/dL (6.3-8.3)
[2016-08-09 08:19] LABS: ALB/GLOB RATIO 1.2 (1.0-2.1); BLOOD UREA NITROGEN 19 mg/dL (7-17); CALCIUM 8.6 mg/dl (8.6-10.4); GLUCOSE,RANDOM 238 mg/dL (65-105)
[2016-08-09 08:31] LABS: ALT/SGPT < 6 U/L (9-52)
[2016-08-09 08:32] LABS: BILIRUBIN,TOTAL 1.4 mg/dL (0.2-1.3); POTASSIUM 5.5 mmol/L (3.6-5.2)
[2016-08-09] MEDS: (Novolog) Insulin Aspart, Recombinant 100 u/ml 10 ml vial SC SCH ×4 (08:45→21:38)
[2016-08-09] MEDS ORDERED: Sod Polystyrene Sulf 15 gm/60 ml Oral Susp PO ONE (09:11)
[2016-08-09] MEDS: Enoxaparin 40 mg Syringe SC SCH (10:58)
[2016-08-09] MEDS: POLYETHYLENE GLYCOL 3350 17 GM/Dose PACKET PO SCH (10:59)
[2016-08-09] MEDS: Pantoprazole 40 mg EC Tab PO SCH (11:00)
[2016-08-09] MEDS: MethylPREDNISolone 40 mg Vial IVP SCH ×2 (11:00→21:22)
--- NOTE | 2016-08-09 11:06 | CP.PCM.PN ---
Subjective - Date & Time of Evaluation Date of Evaluation: 08/09/16 Time of Evaluation: 11:01 - Subjective Subjective: Medicine Progress Note- Dr Holder's service Patient seen and examined. Patient states that she feels better today but continues to complain of midsternal chest pain that is worse with palpation. She denies shortness of breath or cough this morning. Patient states that she is tired and was unable to sleep well overnight due to being uncomfortable. She complains of neuropathic pain in her legs that is chronic. Patient uses a wheelchair and walker at home to ambulate. Denies fever, chills, nausea, vomiting, abdominal pain, palpitations, and new onset weakness. Objective - Vital Signs/Intake and Output Vital Signs (last 24 hours): Temp Pulse Resp BP Pulse Ox 98.5 F 68 20 166/77 H 97 08/09/16 08:00 08/09/16 08:00 08/09/16 08:00 08/09/16 10:59 08/09/16 08:00 Intake and Output: 08/09/16 08/09/16 06:59 18:59 Intake Total 650 Output Total 2000 Balance -1350 - Medications Medications: Current Medications Acetaminophen (Tylenol 325mg Tab) 650 mg PO Q6H PRN PRN Reason: Pain, moderate (4-7) Last Admin: 08/06/16 21:45 Dose: 650 mg Albuterol/Ipratropium (Duoneb 3 Mg/0.5 Mg (3 Ml) Ud) 3 ml INH RQ4 [facility] Last Admin: 08/09/16 07:32 Dose: 3 ml Amlodipine Besylate (Norvasc) 10 mg PO DAILY [facility] Last Admin: 08/09/16 10:59 Dose: 10 mg Carvedilol (Coreg) 12.5 mg PO BID [facility] Last Admin: 08/09/16 10:59 Dose: 12.5 mg Docusate Sodium (Colace) 100 mg PO BID [facility] Last Admin: 08/09/16 11:00 Dose: 100 mg Enoxaparin Sodium (Lovenox) 40 mg SC DAILY [facility] Last Admin: 08/09/16 10:58 Dose: 40 mg Famotidine (Pepcid) 20 mg IVP DAILY [facility] Last Admin: 08/09/16 10:58 Dose: 20 mg Ferrous Sulfate (Feosol) 325 mg PO TID [facility] Last Admin: 08/09/16 11:00 Dose: 325 mg Furosemide (Lasix) 20 mg PO DAILY [facility] Last Admin: 08/09/16 10:59 Dose: 20 mg Moxifloxacin HCl (Avelox Iv 400mg/250ml Ns) 250 mls @ 167 mls/hr IVPB Q24H [facility] Last Admin: 08/09/16 02:27 Dose: 167 mls/hr Insulin Aspart (Novolog) 0 unit SC ACHS [facility] PRN Reason: Protocol Last Admin: 08/09/16 08:45 Dose: 4 unit Memantine (Namenda) 10 mg PO HS [facility] Last Admin: 08/08/16 22:35 Dose: 10 mg Methylprednisolone (Solu-Medrol) 40 mg IVP Q12 [facility] Last Admin: 08/09/16 11:00 Dose: 40 mg Montelukast Sodium (Singulair) 10 mg PO HS [facility] Last Admin: 08/08/16 22:35 Dose: 10 mg Pantoprazole Sodium (Protonix Ec Tab) 40 mg PO DAILY [facility] Last Admin: 08/09/16 11:00 Dose: 40 mg Polyethylene Glycol (Miralax) 17 gm PO DAILY [facility] Last Admin: 08/09/16 10:59 Dose: 17 gm Tramadol HCl (Ultram) 25 mg PO TID PRN PRN Reason: Pain, moderate (4-7) - Labs Labs: 08/09/16 07:55 08/09/16 07:55 - Additional Findings Additional findings: - Constitutional Appears: Non-toxic, No Acute Distress - Head Exam Head Exam: NORMAL INSPECTION - Eye Exam Eye Exam: EOMI - ENT Exam ENT Exam: Mucous Membranes Moist - Respiratory Exam Respiratory Exam: Chest Wall Tenderness, mild wheezing Bilateral, NORMAL BREATHING PATTERN. absent: Rales, Rhonchi - Cardiovascular Exam Cardiovascular Exam: REGULAR RHYTHM, +S1, +S2. absent: Gallop, Rubs, Murmur - GI/Abdominal Exam GI & Abdominal Exam: Distended, Guarding, Tenderness - Extremities Exam Extremities Exam: Normal Capillary Refill. absent: Pedal Edema - Neurological Exam Neurological Exam: Alert, Oriented x3 - Psychiatric Exam Psychiatric exam: Normal Affect, Normal Mood - Skin Skin Exam: Normal Color, Warm Assessment and Plan - Assessment and Plan (Free Text) Assessment: COPD exacerbation Improved DuoNeb 3ml INH RQ4 [facility] Solu-Medrol 40mg IVP Q12H Singulair 10mg PO HS Pneumonia Afebrile, no leukocytosis Cont Avelox 400mg IVPB daily CXR 08/06/16 - Linear atelectasis and/or scarring (please see full report) ID consult - Dr. Bailey - help appreciated Costochondritis Tramadol 25mg PO TID PRN SoluMedrol 40mg IVP Q12 Tylenol 650mg PO Q6H PRN Constipation Improved Obstructive series 08/08/16 - extensive stool in colon. no air fluid levels. ( please see full report in meditech) Colace 100mg PO BID Miralax 17gm PO daily [facility]ISS Accuchecks HTN Coreg 12.5mg PO BID (increased from 6.25mg on 08/08/16) Norvasc 10mg PO daily (increased from 5mg on 08/08/16) Lasix 20mg PO daily Cardio consult - Dr. Anderson - help appreciated Hyperkalemia K+ 5.5 today Given Kayexelate 30gm x1 PO monitor BMP in AM Alzheimer's Namenda 10mg PO HS Prophylaxis Lovenox 40mg SC daily Protonix 40mg PO daily [facility] All management per Dr. Holder
[2016-08-09 18:24] LABS: RBC URINE 58 /hpf (0-3); TRANSITIONAL EPITHIAL < 1 /hpf (0-3); URINE BACTERIA OCC (<OCC); URINE BILIRUBIN NEGATIVE (NEGATIVE); URINE BLOOD 3+ (NEGATIVE); URINE COLOR Yellow (YELLOW); URINE GLUCOSE (UA) 3+ mg/dL (Normal); URINE KETONE NEGATIVE (NEGATIVE); URINE LEUKOCYTE ESTERASE 3+ Leu/uL (Negative); URINE PROTEIN 2+ mg/dL (NEGATIVE); URINE UROBILINOGEN NORMAL mg/dL (0.2-1.0); WBC URINE 65 /hpf (0-5)
--- NOTE | 2016-08-09 19:00 | CP.PCM.PN ---
Subjective - Date & Time of Evaluation Date of Evaluation: 08/09/16 Time of Evaluation: 13:00 - Subjective Subjective: less sob, non specific pain Objective - Vital Signs/Intake and Output Vital Signs (last 24 hours): Temp Pulse Resp BP Pulse Ox 98 F 74 20 143/52 L 99 08/09/16 16:00 08/09/16 16:00 08/09/16 16:00 08/09/16 17:48 08/09/16 16:00 Intake and Output: 08/09/16 08/09/16 06:59 18:59 Intake Total 650 360 Output Total 2000 600 Balance -1350 -240 - Medications Medications: Current Medications Acetaminophen (Tylenol 325mg Tab) 650 mg PO Q6H PRN PRN Reason: Pain, moderate (4-7) Last Admin: 08/06/16 21:45 Dose: 650 mg Albuterol/Ipratropium (Duoneb 3 Mg/0.5 Mg (3 Ml) Ud) 3 ml INH RQ4 [facility] Last Admin: 08/09/16 16:25 Dose: 3 ml Amlodipine Besylate (Norvasc) 10 mg PO DAILY [facility] Last Admin: 08/09/16 10:59 Dose: 10 mg Carvedilol (Coreg) 12.5 mg PO BID [facility] Last Admin: 08/09/16 17:48 Dose: 12.5 mg Docusate Sodium (Colace) 100 mg PO BID [facility] Last Admin: 08/09/16 17:48 Dose: 100 mg Enoxaparin Sodium (Lovenox) 40 mg SC DAILY [facility] Last Admin: 08/09/16 10:58 Dose: 40 mg Famotidine (Pepcid) 20 mg PO DAILY [facility] Ferrous Sulfate (Feosol) 325 mg PO TID [facility] Last Admin: 08/09/16 17:48 Dose: 325 mg Furosemide (Lasix) 20 mg PO DAILY [facility] Last Admin: 08/09/16 10:59 Dose: 20 mg Moxifloxacin HCl (Avelox Iv 400mg/250ml Ns) 250 mls @ 167 mls/hr IVPB Q24H [facility] Last Admin: 08/09/16 02:27 Dose: 167 mls/hr Insulin Aspart (Novolog) 0 unit SC ACHS [facility] PRN Reason: Protocol Last Admin: 08/09/16 17:46 Dose: 4 unit Memantine (Namenda) 10 mg PO HS [facility] Last Admin: 08/08/16 22:35 Dose: 10 mg Methylprednisolone (Solu-Medrol) 40 mg IVP Q12 [facility] Last Admin: 08/09/16 11:00 Dose: 40 mg Montelukast Sodium (Singulair) 10 mg PO HS [facility] Last Admin: 08/08/16 22:35 Dose: 10 mg Pantoprazole Sodium (Protonix Ec Tab) 40 mg PO DAILY [facility] Last Admin: 08/09/16 11:00 Dose: 40 mg Polyethylene Glycol (Miralax) 17 gm PO DAILY [facility] Last Admin: 08/09/16 10:59 Dose: 17 gm Tramadol HCl (Ultram) 25 mg PO TID PRN PRN Reason: Pain, moderate (4-7) - Labs Labs: 08/09/16 07:55 08/09/16 07:55 - Constitutional Appears: Non-toxic - Eye Exam Eye Exam: EOMI - ENT Exam ENT Exam: Mucous Membranes Moist - Neck Exam Neck Exam: absent: Lymphadenopathy, Thyromegaly - Respiratory Exam Respiratory Exam: Clear to Ausculation Bilateral, Rhonchi. absent: Rales - Cardiovascular Exam Cardiovascular Exam: REGULAR RHYTHM, Murmur - GI/Abdominal Exam GI & Abdominal Exam: Normal Bowel Sounds. absent: Organomegaly - Rectal Exam Rectal Exam: Deferred - Extremities Exam Extremities Exam: Normal Capillary Refill. absent: Calf Tenderness - Neurological Exam Neurological Exam: Alert, Oriented x3 - Psychiatric Exam Psychiatric exam: Depressed - Skin Skin Exam: Dry Assessment and Plan (1) Diabetes 1.5, managed as type 2 Status: Chronic (2) Complaint of debility and malaise Status: Chronic (3) Hypertension Status: Chronic (4) COPD (chronic obstructive pulmonary disease) Status: Acute (5) Respiratory failure Status: Acute
[2016-08-09] MEDS: Tramadol 25 mg PO PRN (21:21)
[2016-08-10] MEDS: Albuterol-Ipratrop 3 mg / 0.5 (3 ml) UD INH SCH ×7 (00:01→23:40)
[2016-08-10] MEDS: Moxifloxacin IV 400mg/250ml NS 250 ML IVPB SCH (02:08)
--- NOTE | 2016-08-10 07:42 | CP.PCM.PN ---
Subjective - Date & Time of Evaluation Date of Evaluation: 08/10/16 Time of Evaluation: 09:00 - Subjective Subjective: Medicine Progress Note- Dr. Holder's service: Patient seen and examined at bedside this morning. Patient is complaining of chest discomfort that she has had since admission. Chest pain is reproducible to touch. SOB has improved since admission. Patient had her last treatment at 4 am. Admits to bilateral leg pain secondary to her "diabetes". Denies fevers, chills, nausea, vomiting, dysuria. Objective - Vital Signs/Intake and Output Vital Signs (last 24 hours): Temp Pulse Resp BP Pulse Ox 97.9 F 66 20 182/84 H 100 08/10/16 00:00 08/10/16 00:00 08/10/16 00:00 08/10/16 00:00 08/10/16 00:00 Intake and Output: 08/10/16 08/10/16 06:59 18:59 Intake Total 100 Output Total 1025 Balance -925 - Medications Medications: Current Medications Acetaminophen (Tylenol 325mg Tab) 650 mg PO Q6H PRN PRN Reason: Pain, moderate (4-7) Last Admin: 08/06/16 21:45 Dose: 650 mg Albuterol/Ipratropium (Duoneb 3 Mg/0.5 Mg (3 Ml) Ud) 3 ml INH RQ4 [facility] Last Admin: 08/10/16 04:00 Dose: 3 ml Amlodipine Besylate (Norvasc) 10 mg PO DAILY [facility] Last Admin: 08/09/16 10:59 Dose: 10 mg Carvedilol (Coreg) 12.5 mg PO BID [facility] Last Admin: 08/09/16 17:48 Dose: 12.5 mg Docusate Sodium (Colace) 100 mg PO BID [facility] Last Admin: 08/09/16 17:48 Dose: 100 mg Enoxaparin Sodium (Lovenox) 40 mg SC DAILY [facility] Last Admin: 08/09/16 10:58 Dose: 40 mg Famotidine (Pepcid) 20 mg PO DAILY [facility] Ferrous Sulfate (Feosol) 325 mg PO TID [facility] Last Admin: 08/09/16 17:48 Dose: 325 mg Furosemide (Lasix) 20 mg PO DAILY [facility] Last Admin: 08/09/16 10:59 Dose: 20 mg Moxifloxacin HCl (Avelox Iv 400mg/250ml Ns) 250 mls @ 167 mls/hr IVPB Q24H [facility] Last Admin: 08/10/16 02:08 Dose: 167 mls/hr Insulin Aspart (Novolog) 0 unit SC ACHS [facility] PRN Reason: Protocol Memantine (Namenda) 10 mg PO HS [facility] Last Admin: 08/09/16 21:22 Dose: 10 mg Methylprednisolone (Solu-Medrol) 40 mg IVP Q12 [facility] Last Admin: 08/09/16 21:22 Dose: 40 mg Montelukast Sodium (Singulair) 10 mg PO HS [facility] Last Admin: 08/09/16 21:22 Dose: 10 mg Pantoprazole Sodium (Protonix Ec Tab) 40 mg PO DAILY [facility] Last Admin: 08/09/16 11:00 Dose: 40 mg Polyethylene Glycol (Miralax) 17 gm PO DAILY [facility] Last Admin: 08/09/16 10:59 Dose: 17 gm Tramadol HCl (Ultram) 25 mg PO TID PRN PRN Reason: Pain, moderate (4-7) Last Admin: 08/09/16 21:21 Dose: 25 mg - Labs Labs: 08/09/16 07:55 08/09/16 07:55 - Constitutional Appears: No Acute Distress - Head Exam Head Exam: NORMAL INSPECTION, NORMOCEPHALIC - Eye Exam Eye Exam: EOMI, Normal appearance - ENT Exam ENT Exam: Mucous Membranes Moist - Respiratory Exam Respiratory Exam: Clear to Ausculation Bilateral, NORMAL BREATHING PATTERN - Cardiovascular Exam Cardiovascular Exam: REGULAR RHYTHM, +S1, +S2 Additional comments: +chest wall is tender to palpation - GI/Abdominal Exam GI & Abdominal Exam: Soft. absent: Distended, Tenderness - Extremities Exam Extremities Exam: Full ROM, Normal Inspection - Neurological Exam Neurological Exam: Alert, Altered, Awake - Psychiatric Exam Psychiatric exam: Normal Affect, Normal Mood - Skin Skin Exam: Normal Color, Warm Assessment and Plan - Assessment and Plan (Free Text) Assessment: 1) COPD exacerbation Improved DuoNeb 3ml INH RQ4 [facility] Solu-Medrol 40mg IVP Q12H Singulair 10mg PO HS 2) Pneumonia Afebrile, no leukocytosis Cont Avelox 400mg IVPB daily CXR 08/06/16 - Linear atelectasis and/or scarring (please see full report) ID consult - Dr. Bailey - help appreciated 3) Costochondritis Tramadol 25mg PO TID PRN SoluMedrol 40mg IVP Q12 Tylenol 650mg PO Q6H PRN 4) UTI Urine Cx positive: Proteus Mirabilis ID consult - Dr. Bailey - help appreciated repeat C&S as per Dr. Bailey 5) Constipation Improved Obstructive series 08/08/16 - extensive stool in colon. no air fluid levels. ( please see full report in med[facility]ch) Colace 100mg PO BID Miralax 17gm PO daily 6) DM RISS Accuchecks 7) HTN Coreg 12.5mg PO BID (increased from 6.25mg on 08/08/16) Norvasc 10mg PO daily (increased from 5mg on 08/08/16) Lasix 20mg PO daily Cardio consult - Dr. Anderson - help appreciated 8) Alzheimer's Namenda 10mg PO HS 9) Prophylaxis Lovenox 40mg SC daily Protonix 40mg PO daily [facility] All management per Dr. Holder
[2016-08-10] MEDS ORDERED: (Novolog) Insulin Aspart, Recombinant 100 u/ml 10 ml vial SC ONE (08:18)
[2016-08-10] MEDS: Tramadol 25 mg PO PRN (09:09)
[2016-08-10] MEDS: Pantoprazole 40 mg EC Tab PO SCH (10:17)
[2016-08-10] MEDS: Enoxaparin 40 mg Syringe SC SCH (10:18)
[2016-08-10] MEDS: MethylPREDNISolone 40 mg Vial IVP SCH ×2 (10:18→22:25)
[2016-08-10] MEDS: POLYETHYLENE GLYCOL 3350 17 GM/Dose PACKET PO SCH (10:19)
[2016-08-10] MEDS: (Novolog) Insulin Aspart, Recombinant 100 u/ml 10 ml vial SC SCH ×3 (13:12→22:17)
--- NOTE | 2016-08-10 18:11 | CP.PCM.PN ---
Subjective - Date & Time of Evaluation Date of Evaluation: 08/10/16 Time of Evaluation: 08:00 - Subjective Subjective: no fever or leukocytosis allergic to PCN may need Merrem await ID of organism Objective - Vital Signs/Intake and Output Vital Signs (last 24 hours): Temp Pulse Resp BP Pulse Ox 97.7 F 60 20 139/76 98 08/10/16 16:03 08/10/16 16:03 08/10/16 16:03 08/10/16 16:03 08/10/16 16:03 Intake and Output: 08/10/16 08/10/16 06:59 18:59 Intake Total 100 Output Total 1025 Balance -925 - Medications Medications: Current Medications Acetaminophen (Tylenol 325mg Tab) 650 mg PO Q6H PRN PRN Reason: Pain, moderate (4-7) Last Admin: 08/06/16 21:45 Dose: 650 mg Albuterol/Ipratropium (Duoneb 3 Mg/0.5 Mg (3 Ml) Ud) 3 ml INH RQ4 [facility] Last Admin: 08/10/16 15:59 Dose: 3 ml Amlodipine Besylate (Norvasc) 10 mg PO DAILY [facility] Last Admin: 08/10/16 10:16 Dose: 10 mg Carvedilol (Coreg) 12.5 mg PO BID [facility] Last Admin: 08/10/16 10:17 Dose: 12.5 mg Docusate Sodium (Colace) 100 mg PO BID [facility] Last Admin: 08/10/16 10:17 Dose: 100 mg Enoxaparin Sodium (Lovenox) 40 mg SC DAILY [facility] Last Admin: 08/10/16 10:18 Dose: 40 mg Famotidine (Pepcid) 20 mg PO DAILY [facility] Last Admin: 08/10/16 10:17 Dose: 20 mg Ferrous Sulfate (Feosol) 325 mg PO TID [facility] Last Admin: 08/10/16 13:12 Dose: 325 mg Furosemide (Lasix) 20 mg PO DAILY [facility] Last Admin: 08/10/16 10:17 Dose: 20 mg Moxifloxacin HCl (Avelox Iv 400mg/250ml Ns) 250 mls @ 167 mls/hr IVPB Q24H [facility] Last Admin: 08/10/16 02:08 Dose: 167 mls/hr Insulin Aspart (Novolog) 0 unit SC ACHS [facility] PRN Reason: Protocol Last Admin: 08/10/16 13:12 Dose: 6 unit Memantine (Namenda) 10 mg PO HS [facility] Last Admin: 08/09/16 21:22 Dose: 10 mg Methylprednisolone (Solu-Medrol) 40 mg IVP Q12 [facility] Last Admin: 08/10/16 10:18 Dose: 40 mg Montelukast Sodium (Singulair) 10 mg PO HS [facility] Last Admin: 08/09/16 21:22 Dose: 10 mg Naproxen (Anaprox Ds) 550 mg PO Q12H [facility] Pantoprazole Sodium (Protonix Ec Tab) 40 mg PO DAILY [facility] Last Admin: 08/10/16 10:17 Dose: 40 mg Polyethylene Glycol (Miralax) 17 gm PO DAILY [facility] Last Admin: 08/10/16 10:19 Dose: 17 gm - Labs Labs: 08/09/16 07:55 08/09/16 07:55 - Constitutional Appears: Non-toxic, Cachectic, Chronically Ill - Head Exam Head Exam: NORMOCEPHALIC - Eye Exam Eye Exam: PERRL. absent: Scleral icterus - ENT Exam ENT Exam: Mucous Membranes Dry - Neck Exam Neck Exam: absent: Lymphadenopathy - Respiratory Exam Respiratory Exam: Decreased Breath Sounds, Rhonchi - Cardiovascular Exam Cardiovascular Exam: REGULAR RHYTHM, +S1, +S2 - GI/Abdominal Exam GI & Abdominal Exam: Distended, Soft. absent: Tenderness - Rectal Exam Rectal Exam: Deferred - Exam Exam: NORMAL INSPECTION - Extremities Exam Extremities Exam: absent: Calf Tenderness, Pedal Edema Assessment and Plan (1) COPD (chronic obstructive pulmonary disease) Status: Acute (2) Chronic obstructive lung disease Status: Acute (3) Respiratory failure Status: Acute (4) SOB (shortness of breath) Status: Acute (5) Asthma exacerbation Status: Acute (6) Dehydration Status: Acute
--- NOTE | 2016-08-10 19:35 | CP.PCM.PN ---
Subjective - Date & Time of Evaluation Date of Evaluation: 08/10/16 Time of Evaluation: 12:00 - Subjective Subjective: atypical pain supportive management Objective - Vital Signs/Intake and Output Vital Signs (last 24 hours): Temp Pulse Resp BP Pulse Ox 97.7 F 60 20 139/76 98 08/10/16 16:03 08/10/16 16:03 08/10/16 16:03 08/10/16 18:47 08/10/16 16:03 Intake and Output: 08/10/16 08/11/16 18:59 06:59 Intake Total 490 Output Total 980 Balance -490 - Medications Medications: Current Medications Acetaminophen (Tylenol 325mg Tab) 650 mg PO Q6H PRN PRN Reason: Pain, moderate (4-7) Last Admin: 08/06/16 21:45 Dose: 650 mg Albuterol/Ipratropium (Duoneb 3 Mg/0.5 Mg (3 Ml) Ud) 3 ml INH RQ4 [facility] Last Admin: 08/10/16 15:59 Dose: 3 ml Amlodipine Besylate (Norvasc) 10 mg PO DAILY [facility] Last Admin: 08/10/16 10:16 Dose: 10 mg Carvedilol (Coreg) 12.5 mg PO BID [facility] Last Admin: 08/10/16 18:47 Dose: 12.5 mg Docusate Sodium (Colace) 100 mg PO BID [facility] Last Admin: 08/10/16 18:47 Dose: 100 mg Enoxaparin Sodium (Lovenox) 40 mg SC DAILY [facility] Last Admin: 08/10/16 10:18 Dose: 40 mg Famotidine (Pepcid) 20 mg PO DAILY [facility] Last Admin: 08/10/16 10:17 Dose: 20 mg Ferrous Sulfate (Feosol) 325 mg PO TID [facility] Last Admin: 08/10/16 18:47 Dose: 325 mg Furosemide (Lasix) 20 mg PO DAILY [facility] Last Admin: 08/10/16 10:17 Dose: 20 mg Moxifloxacin HCl (Avelox Iv 400mg/250ml Ns) 250 mls @ 167 mls/hr IVPB Q24H [facility] Last Admin: 08/10/16 02:08 Dose: 167 mls/hr Insulin Aspart (Novolog) 0 unit SC ACHS [facility] PRN Reason: Protocol Last Admin: 04/26/17 18:48 Dose: 8 unit Memantine (Namenda) 10 mg PO HS [facility] Last Admin: 08/09/16 21:22 Dose: 10 mg Methylprednisolone (Solu-Medrol) 40 mg IVP Q12 [facility] Last Admin: 08/10/16 10:18 Dose: 40 mg Montelukast Sodium (Singulair) 10 mg PO HS [facility] Last Admin: 08/09/16 21:22 Dose: 10 mg Naproxen (Anaprox Ds) 550 mg PO Q12H [facility] Pantoprazole Sodium (Protonix Ec Tab) 40 mg PO DAILY [facility] Last Admin: 08/10/16 10:17 Dose: 40 mg Polyethylene Glycol (Miralax) 17 gm PO DAILY [facility] Last Admin: 08/10/16 10:19 Dose: 17 gm - Labs Labs: 08/09/16 07:55 08/09/16 07:55 - Constitutional Appears: Non-toxic - Head Exam Head Exam: ATRAUMATIC - Eye Exam Eye Exam: EOMI - ENT Exam ENT Exam: Mucous Membranes Moist - Neck Exam Neck Exam: absent: Lymphadenopathy, Thyromegaly - Respiratory Exam Respiratory Exam: Clear to Ausculation Bilateral. absent: Rales - Cardiovascular Exam Cardiovascular Exam: REGULAR RHYTHM, Murmur - GI/Abdominal Exam GI & Abdominal Exam: Normal Bowel Sounds. absent: Organomegaly - Rectal Exam Rectal Exam: Deferred - Extremities Exam Extremities Exam: Normal Capillary Refill. absent: Calf Tenderness - Neurological Exam Neurological Exam: Alert, Oriented x3 - Psychiatric Exam Psychiatric exam: Normal Mood - Skin Skin Exam: Dry Assessment and Plan (1) Diabetes 1.5, managed as type 2 Status: Chronic (2) Complaint of debility and malaise Status: Chronic (3) Hypertension Status: Chronic (4) COPD (chronic obstructive pulmonary disease) Status: Acute (5) Respiratory failure Status: Acute
[2016-08-10] MEDS: Naproxen 550 mg Tab PO SCH (22:25)
[2016-08-11] MEDS: Albuterol-Ipratrop 3 mg / 0.5 (3 ml) UD INH SCH ×6 (03:09→23:22)
[2016-08-11] MEDS: Moxifloxacin IV 400mg/250ml NS 250 ML IVPB SCH (03:30)
[2016-08-11] MEDS: (Novolog) Insulin Aspart, Recombinant 100 u/ml 10 ml vial SC SCH ×4 (09:00→21:47)
[2016-08-11] MEDS: POLYETHYLENE GLYCOL 3350 17 GM/Dose PACKET PO SCH (09:39)
[2016-08-11] MEDS: Naproxen 550 mg Tab PO SCH ×2 (09:40→21:47)
[2016-08-11] MEDS: Pantoprazole 40 mg EC Tab PO SCH (09:40)
[2016-08-11] MEDS: Enoxaparin 40 mg Syringe SC SCH (09:41)
[2016-08-11] MEDS: MethylPREDNISolone 40 mg Vial IVP SCH ×2 (09:41→21:48)
--- NOTE | 2016-08-11 10:21 | CP.PCM.PN ---
Subjective - Date & Time of Evaluation Date of Evaluation: 08/11/16 Time of Evaluation: 09:40 - Subjective Subjective: PGY2 Medicine Note - Dr. Holder's service: Patient seen and examined at bedside this AM. Patient reports reproducible sternal pain. Patient also says she has only had a bowel movement one time since admission. Patient is wheezing. Patient denies fever, chills, SOB, abdominal pain, nausea, vomiting. Objective - Vital Signs/Intake and Output Vital Signs (last 24 hours): Temp Pulse Resp BP Pulse Ox 97.8 F 64 18 133/74 100 08/11/16 08:25 08/11/16 08:25 08/11/16 08:25 08/11/16 09:41 08/11/16 08:25 Intake and Output: 08/11/16 08/11/16 06:59 18:59 Intake Total 1000 Output Total 1100 Balance -100 - Medications Medications: Current Medications Acetaminophen (Tylenol 325mg Tab) 650 mg PO Q6H PRN PRN Reason: Pain, moderate (4-7) Last Admin: 08/06/16 21:45 Dose: 650 mg Albuterol/Ipratropium (Duoneb 3 Mg/0.5 Mg (3 Ml) Ud) 3 ml INH RQ4 [facility] Last Admin: 08/11/16 08:05 Dose: 3 ml Amlodipine Besylate (Norvasc) 10 mg PO DAILY [facility] Last Admin: 08/11/16 09:40 Dose: 10 mg Carvedilol (Coreg) 12.5 mg PO BID [facility] Last Admin: 08/11/16 09:40 Dose: 12.5 mg Docusate Sodium (Colace) 100 mg PO BID [facility] Last Admin: 08/11/16 09:40 Dose: 100 mg Enoxaparin Sodium (Lovenox) 40 mg SC DAILY [facility] Last Admin: 08/11/16 09:41 Dose: 40 mg Famotidine (Pepcid) 20 mg PO DAILY [facility] Last Admin: 08/11/16 09:40 Dose: 20 mg Ferrous Sulfate (Feosol) 325 mg PO TID [facility] Last Admin: 08/11/16 09:39 Dose: 325 mg Furosemide (Lasix) 20 mg PO DAILY [facility] Last Admin: 08/11/16 09:41 Dose: 20 mg Gabapentin (Neurontin) 100 mg PO TID [facility] Last Admin: 08/11/16 09:40 Dose: 100 mg Moxifloxacin HCl (Avelox Iv 400mg/250ml Ns) 250 mls @ 167 mls/hr IVPB Q24H [facility] Last Admin: 08/11/16 03:30 Dose: 167 mls/hr Insulin Aspart (Novolog) 0 unit SC ACHS [facility] PRN Reason: Protocol Last Admin: 08/11/16 09:00 Dose: 6 unit Memantine (Namenda) 10 mg PO HS [facility] Last Admin: 08/10/16 22:25 Dose: 10 mg Methylprednisolone (Solu-Medrol) 40 mg IVP Q12 [facility] Last Admin: 08/11/16 09:41 Dose: 40 mg Montelukast Sodium (Singulair) 10 mg PO HS [facility] Last Admin: 08/10/16 22:25 Dose: 10 mg Naproxen (Anaprox Ds) 550 mg PO Q12H [facility] Last Admin: 08/11/16 09:40 Dose: 550 mg Pantoprazole Sodium (Protonix Ec Tab) 40 mg PO DAILY [facility] Last Admin: 08/11/16 09:40 Dose: 40 mg Polyethylene Glycol (Miralax) 17 gm PO DAILY [facility] Last Admin: 08/11/16 09:39 Dose: 17 gm Fluticasone/Salmeterol (Advair Diskus 250/50) 1 puff INH RQ12 [facility] - Labs Labs: 08/09/16 07:55 08/09/16 07:55 - Constitutional Appears: Non-toxic, No Acute Distress - Head Exam Head Exam: NORMAL INSPECTION - Eye Exam Eye Exam: EOMI - ENT Exam ENT Exam: Mucous Membranes Moist - Respiratory Exam Respiratory Exam: Chest Wall Tenderness, Wheezes, NORMAL BREATHING PATTERN. absent: Accessory Muscle Use, Respiratory Distress - Cardiovascular Exam Cardiovascular Exam: REGULAR RHYTHM, +S1, +S2. absent: Gallop, Rubs - GI/Abdominal Exam GI & Abdominal Exam: Soft, Normal Bowel Sounds. absent: Tenderness - Extremities Exam Extremities Exam: absent: Pedal Edema - Neurological Exam Neurological Exam: Alert, Oriented x3 - Psychiatric Exam Psychiatric exam: Normal Affect, Normal Mood - Skin Skin Exam: Normal Color, Warm Assessment and Plan - Assessment and Plan (Free Text) Assessment: 1) COPD exacerbation Improved DuoNeb 3ml INH RQ4 [facility] Solu-Medrol 40mg IVP Q12H Singulair 10mg PO HS Added advair 250/50 1 puff INH Q12H 08/11/16 2) Pneumonia Afebrile, no leukocytosis Cont Avelox 400mg IVPB daily CXR 08/06/16 - Linear atelectasis and/or scarring (please see full report) ID consult - Dr. Bailey - help appreciated 3) Costochondritis Naproxen 550mg PO Q12H SoluMedrol 40mg IVP Q12H Tylenol 650mg PO Q6H PRN EKG - NSR 4) UTI 08/09/16 UA: 2+ protein, 3+ glucose, 3+ blood, 3+ LE. 65WBC, 58 RBC, 1 squamous epithelial cell, occasional bacteria 08/06/16 Urine Cx positive: Proteus Mirabilis ID consult - Dr. Bailey - help appreciated repeat C&S on 08/[address] Bailey also positive for proteus mirabilis Patient allergic to penicillins. f/u recs for Abx from Dr. Bailey 5) Constipation Improved Obstructive series 08/08/16 - extensive stool in colon. no air fluid levels. ( please see full report in [employer]) Colace 100mg PO BID Miralax 17gm PO daily 6) DM RISS Accuchecks 7) HTN BPs were high on 08/10/16. Monitor today. If still high, will add Cozaar. Coreg 12.5mg PO BID (increased from 6.25mg on 08/08/16) Norvasc 10mg PO daily (increased from 5mg on 08/08/16) Lasix 20mg PO daily Cardio consult - Dr. Anderson - help appreciated 8) Alzheimer's Namenda 10mg PO HS 9) Prophylaxis Lovenox 40mg SC daily Protonix 40mg PO daily [facility] All management per Dr. Holder
--- NOTE | 2016-08-11 17:13 | CP.PCM.PN ---
Subjective - Date & Time of Evaluation Date of Evaluation: 08/11/16 Time of Evaluation: 14:00 - Subjective Subjective: chest wall tenderness, less sob Objective - Vital Signs/Intake and Output Vital Signs (last 24 hours): Temp Pulse Resp BP Pulse Ox 97.8 F 81 20 123/76 98 08/11/16 16:07 08/11/16 16:07 08/11/16 16:07 08/11/16 16:07 08/11/16 16:07 Intake and Output: 08/11/16 08/11/16 06:59 18:59 Intake Total 1000 Output Total 1100 Balance -100 - Medications Medications: Current Medications Acetaminophen (Tylenol 325mg Tab) 650 mg PO Q6H PRN PRN Reason: Pain, moderate (4-7) Last Admin: 08/06/16 21:45 Dose: 650 mg Albuterol/Ipratropium (Duoneb 3 Mg/0.5 Mg (3 Ml) Ud) 3 ml INH RQ4 [facility] Last Admin: 08/11/16 15:41 Dose: 3 ml Amlodipine Besylate (Norvasc) 10 mg PO DAILY [facility] Last Admin: 08/11/16 09:40 Dose: 10 mg Carvedilol (Coreg) 12.5 mg PO BID [facility] Last Admin: 08/11/16 09:40 Dose: 12.5 mg Docusate Sodium (Colace) 100 mg PO BID [facility] Last Admin: 08/11/16 09:40 Dose: 100 mg Enoxaparin Sodium (Lovenox) 40 mg SC DAILY [facility] Last Admin: 08/11/16 09:41 Dose: 40 mg Famotidine (Pepcid) 20 mg PO DAILY [facility] Last Admin: 08/11/16 09:40 Dose: 20 mg Ferrous Sulfate (Feosol) 325 mg PO TID [facility] Last Admin: 08/11/16 15:00 Dose: 325 mg Furosemide (Lasix) 20 mg PO DAILY [facility] Last Admin: 08/11/16 09:41 Dose: 20 mg Gabapentin (Neurontin) 100 mg PO TID [facility] Last Admin: 08/11/16 14:59 Dose: 100 mg Insulin Aspart (Novolog) 0 unit SC ACHS [facility] PRN Reason: Protocol Last Admin: 08/11/16 13:24 Dose: 6 unit Memantine (Namenda) 10 mg PO HS [facility] Last Admin: 08/10/16 22:25 Dose: 10 mg Methylprednisolone (Solu-Medrol) 40 mg IVP Q12 [facility] Last Admin: 08/11/16 09:41 Dose: 40 mg Montelukast Sodium (Singulair) 10 mg PO HS [facility] Last Admin: 08/10/16 22:25 Dose: 10 mg Moxifloxacin HCl (Avelox) 400 mg PO DAILY [facility] Naproxen (Anaprox Ds) 550 mg PO Q12H [facility] Last Admin: 08/11/16 09:40 Dose: 550 mg Pantoprazole Sodium (Protonix Ec Tab) 40 mg PO DAILY [facility] Last Admin: 08/11/16 09:40 Dose: 40 mg Polyethylene Glycol (Miralax) 17 gm PO DAILY [facility] Last Admin: 08/11/16 09:39 Dose: 17 gm Fluticasone/Salmeterol (Advair Diskus 250/50) 1 puff INH RQ12 [facility] - Labs Labs: 08/09/16 07:55 08/09/16 07:55 - Constitutional Appears: Non-toxic - Head Exam Head Exam: ATRAUMATIC - Eye Exam Eye Exam: EOMI - ENT Exam ENT Exam: Mucous Membranes Moist - Neck Exam Neck Exam: absent: Lymphadenopathy, Thyromegaly - Respiratory Exam Respiratory Exam: Chest Wall Tenderness. absent: Rales - Cardiovascular Exam Cardiovascular Exam: REGULAR RHYTHM, Murmur - GI/Abdominal Exam GI & Abdominal Exam: Normal Bowel Sounds. absent: Organomegaly - Rectal Exam Rectal Exam: Deferred - Extremities Exam Extremities Exam: Normal Capillary Refill. absent: Calf Tenderness - Neurological Exam Neurological Exam: Alert, Oriented x3 - Psychiatric Exam Psychiatric exam: Normal Mood - Skin Skin Exam: Dry Assessment and Plan (1) Diabetes 1.5, managed as type 2 Status: Chronic (2) Complaint of debility and malaise Status: Chronic (3) Hypertension Status: Chronic (4) COPD (chronic obstructive pulmonary disease) Status: Acute (5) Respiratory failure Status: Acute
--- NOTE | 2016-08-11 18:55 | CP.PCM.PN ---
Subjective - Date & Time of Evaluation Date of Evaluation: 08/11/16 Time of Evaluation: 09:00 - Subjective Subjective: REPEAT C/S CONFIRMS ESBL + PROTEUS EXPLAINED RISKS TO PT WILL START MERREM CONSIDER REMOVAL OF [place] / EVAL Objective - Vital Signs/Intake and Output Vital Signs (last 24 hours): Temp Pulse Resp BP Pulse Ox 97.8 F 81 20 133/64 98 08/11/16 16:07 08/11/16 16:07 08/11/16 16:07 08/11/16 18:05 08/11/16 16:07 Intake and Output: 08/11/16 08/11/16 06:59 18:59 Intake Total 1000 430 Output Total 1100 700 Balance -100 -270 - Medications Medications: Current Medications Acetaminophen (Tylenol 325mg Tab) 650 mg PO Q6H PRN PRN Reason: Pain, moderate (4-7) Last Admin: 08/06/16 21:45 Dose: 650 mg Albuterol/Ipratropium (Duoneb 3 Mg/0.5 Mg (3 Ml) Ud) 3 ml INH RQ4 [facility] Last Admin: 08/11/16 15:41 Dose: 3 ml Amlodipine Besylate (Norvasc) 10 mg PO DAILY [facility] Last Admin: 08/11/16 09:40 Dose: 10 mg Carvedilol (Coreg) 12.5 mg PO BID [facility] Last Admin: 08/11/16 18:05 Dose: 12.5 mg Docusate Sodium (Colace) 100 mg PO BID [facility] Last Admin: 08/11/16 18:05 Dose: 100 mg Enoxaparin Sodium (Lovenox) 40 mg SC DAILY [facility] Last Admin: 08/11/16 09:41 Dose: 40 mg Famotidine (Pepcid) 20 mg PO DAILY [facility] Last Admin: 08/11/16 09:40 Dose: 20 mg Ferrous Sulfate (Feosol) 325 mg PO TID [facility] Last Admin: 08/11/16 18:05 Dose: 325 mg Furosemide (Lasix) 20 mg PO DAILY [facility] Last Admin: 08/11/16 09:41 Dose: 20 mg Gabapentin (Neurontin) 100 mg PO TID [facility] Last Admin: 08/11/16 18:04 Dose: 100 mg Insulin Aspart (Novolog) 0 unit SC [facility]CLUDE 234 [facility]S [facility] PRN Reason: Protocol Last Admin: 08/11/16 18:05 Dose: 6 unit Memantine (Namenda) 10 mg PO HS [facility] Last Admin: 08/10/16 22:25 Dose: 10 mg Methylprednisolone (Solu-Medrol) 40 mg IVP Q12 [facility] Last Admin: 08/11/16 09:41 Dose: 40 mg Montelukast Sodium (Singulair) 10 mg PO HS [facility] Last Admin: 08/10/16 22:25 Dose: 10 mg Moxifloxacin HCl (Avelox) 400 mg PO DAILY [facility] Naproxen (Anaprox Ds) 550 mg PO Q12H [facility] Last Admin: 08/11/16 09:40 Dose: 550 mg Pantoprazole Sodium (Protonix Ec Tab) 40 mg PO DAILY [facility] Last Admin: 08/11/16 09:40 Dose: 40 mg Polyethylene Glycol (Miralax) 17 gm PO DAILY [facility] Last Admin: 08/11/16 09:39 Dose: 17 gm Fluticasone/Salmeterol (Advair Diskus 250/50) 1 puff INH RQ12 [facility] - Labs Labs: 08/09/16 07:55 08/09/16 07:55 - Constitutional Appears: Non-toxic, Chronically Ill - Head Exam Head Exam: NORMOCEPHALIC - Eye Exam Eye Exam: PERRL - ENT Exam ENT Exam: Mucous Membranes Dry - Neck Exam Neck Exam: absent: Lymphadenopathy - Respiratory Exam Respiratory Exam: Decreased Breath Sounds, Rhonchi - Cardiovascular Exam Cardiovascular Exam: REGULAR RHYTHM, +S1, +S2 - GI/Abdominal Exam GI & Abdominal Exam: Distended, Soft Assessment and Plan (1) COPD (chronic obstructive pulmonary disease) Status: Acute (2) Chronic obstructive lung disease Status: Acute (3) Respiratory failure Status: Acute (4) SOB (shortness of breath) Status: Acute (5) Asthma exacerbation Status: Acute (6) Dehydration Status: Acute
[2016-08-11] MEDS: Fluticasone-Salmeterol 250-50mcg Diskus INH SCH (19:43)
[2016-08-11] MEDS: Meropenem 500 MG in Sodium Chloride 0.9% 100 ML IVPB SCH (21:48)
[2016-08-12] MEDS: Albuterol-Ipratrop 3 mg / 0.5 (3 ml) UD INH SCH ×4 (03:08→16:25)
[2016-08-12] MEDS: Meropenem 500 MG in Sodium Chloride 0.9% 100 ML IVPB SCH ×2 (05:35→14:50)
[2016-08-12] MEDS: Fluticasone-Salmeterol 250-50mcg Diskus INH SCH (07:21)
[2016-08-12] MEDS: Enoxaparin 40 mg Syringe SC SCH (10:24)
[2016-08-12] MEDS: POLYETHYLENE GLYCOL 3350 17 GM/Dose PACKET PO SCH (10:24)
[2016-08-12] MEDS: MethylPREDNISolone 40 mg Vial IVP SCH (10:25)
[2016-08-12] MEDS: Pantoprazole 40 mg EC Tab PO SCH (10:26)
[2016-08-12] MEDS: Naproxen 550 mg Tab PO SCH (10:27)
--- NOTE | 2016-08-12 10:36 | CP.PCM.PN ---
Subjective - Date & Time of Evaluation Date of Evaluation: 08/12/16 Time of Evaluation: 09:00 - Subjective Subjective: Medicine Progress Note Patient seen and examined. Patient continues to complain of reproducible sternal pain. No acute events. Denies fever, chills, nausea, vomiting, abdominal pain. Objective - Vital Signs/Intake and Output Vital Signs (last 24 hours): Temp Pulse Resp BP Pulse Ox 97.5 F L 65 20 129/74 97 08/12/16 08:23 08/12/16 08:23 08/12/16 08:23 08/12/16 10:28 08/12/16 08:23 Intake and Output: 08/12/16 08/12/16 06:59 18:59 Intake Total 100 Output Total 1200 Balance -1100 - Medications Medications: Current Medications Acetaminophen (Tylenol 325mg Tab) 650 mg PO Q6H PRN PRN Reason: Pain, moderate (4-7) Last Admin: 08/06/16 21:45 Dose: 650 mg Albuterol/Ipratropium (Duoneb 3 Mg/0.5 Mg (3 Ml) Ud) 3 ml INH RQ4 [facility] Last Admin: 08/12/16 07:21 Dose: 3 ml Amlodipine Besylate (Norvasc) 10 mg PO DAILY [facility] Last Admin: 08/12/16 10:27 Dose: 10 mg Carvedilol (Coreg) 12.5 mg PO BID [facility] Last Admin: 08/12/16 10:28 Dose: 12.5 mg Docusate Sodium (Colace) 100 mg PO BID [facility] Last Admin: 08/12/16 10:26 Dose: 100 mg Enoxaparin Sodium (Lovenox) 40 mg SC DAILY [facility] Last Admin: 08/12/16 10:24 Dose: 40 mg Famotidine (Pepcid) 20 mg PO DAILY [facility] Last Admin: 08/12/16 10:29 Dose: 20 mg Ferrous Sulfate (Feosol) 325 mg PO TID [facility] Last Admin: 08/12/16 10:28 Dose: 325 mg Furosemide (Lasix) 20 mg PO DAILY [facility] Last Admin: 08/12/16 10:27 Dose: 20 mg Gabapentin (Neurontin) 100 mg PO TID [facility] Last Admin: 08/12/16 10:28 Dose: 100 mg Meropenem 500 mg/ Sodium (Chloride) 100 mls @ 100 mls/hr IVPB Q8 [facility] Last Admin: 08/12/16 05:35 Dose: 100 mls/hr Insulin Aspart (Novolog) 0 unit SC ACHS [facility] PRN Reason: Protocol Last Admin: 08/11/16 21:47 Dose: Not Given Memantine (Namenda) 10 mg PO HS [facility] Last Admin: 08/11/16 21:47 Dose: 10 mg Methylprednisolone (Solu-Medrol) 40 mg IVP Q12 [facility] Last Admin: 08/12/16 10:25 Dose: 40 mg Montelukast Sodium (Singulair) 10 mg PO HS [facility] Last Admin: 08/11/16 21:47 Dose: 10 mg Moxifloxacin HCl (Avelox) 400 mg PO DAILY [facility] Last Admin: 08/12/16 10:27 Dose: 400 mg Naproxen (Anaprox Ds) 550 mg PO Q12H [facility] Last Admin: 08/12/16 10:27 Dose: 550 mg Pantoprazole Sodium (Protonix Ec Tab) 40 mg PO DAILY [facility] Last Admin: 08/12/16 10:26 Dose: 40 mg Polyethylene Glycol (Miralax) 17 gm PO DAILY [facility] Last Admin: 08/12/16 10:24 Dose: 17 gm Fluticasone/Salmeterol (Advair Diskus 250/50) 1 puff INH RQ12 [facility] Last Admin: 08/12/16 07:21 Dose: 1 puff - Labs Labs: 08/09/16 07:55 08/09/16 07:55 - Additional Findings Additional findings: - Constitutional Appears: Non-toxic, No Acute Distress - Head Exam Head Exam: NORMAL INSPECTION - Eye Exam Eye Exam: EOMI - ENT Exam ENT Exam: Mucous Membranes Moist - Respiratory Exam Respiratory Exam: Chest Wall Tenderness, Wheezes, NORMAL BREATHING PATTERN. absent: Accessory Muscle Use, Respiratory Distress - Cardiovascular Exam Cardiovascular Exam: REGULAR RHYTHM, +S1, +S2. absent: Gallop, Rubs - GI/Abdominal Exam GI & Abdominal Exam: Soft, Normal Bowel Sounds. absent: Tenderness - Extremities Exam Extremities Exam: absent: Pedal Edema - Neurological Exam Neurological Exam: Alert, Oriented x3 - Psychiatric Exam Psychiatric exam: Normal Affect, Normal Mood - Skin Skin Exam: Normal Color, Warm Assessment and Plan - Assessment and Plan (Free Text) Assessment: 1) COPD exacerbation Improved DuoNeb 3ml INH RQ4 [facility] Solu-Medrol 40mg IVP Q12H Singulair 10mg PO HS Added advair 250/50 1 puff INH Q12H 08/11/16 2) Pneumonia Afebrile, no leukocytosis Cont Avelox 400mg IVPB daily CXR 08/06/16 - Linear atelectasis and/or scarring (please see full report) ID consult - Dr. Bailey - help appreciated 3) Costochondritis Naproxen 550mg PO Q12H SoluMedrol 40mg IVP Q12H Tylenol 650mg PO Q6H PRN EKG - NSR 4) UTI 08/12/16: Repeat urine culture is positive for Proteus again. Start Avelox 400mg PO daily and Meropenem 500mg IV q8h 08/09/16 UA: 2+ protein, 3+ glucose, 3+ blood, 3+ LE. 65WBC, 58 RBC, 1 squamous epithelial cell, occasional bacteria 08/06/16 Urine Cx positive: Proteus Mirabilis ID consult - Dr. Bailey - help appreciated repeat C&S on 08/[address] Bailey also positive for proteus mirabilis Patient allergic to penicillins. f/u recs for Abx from Dr. Bailey 5) Constipation Improved Obstructive series 08/08/16 - extensive stool in colon. no air fluid levels. ( please see full report in [facility]) Colace 100mg PO BID Miralax 17gm PO daily 6) DM RISS Accuchecks 7) HTN Coreg 12.5mg PO BID (increased from 6.25mg on 08/08/16) Norvasc 10mg PO daily (increased from 5mg on 08/08/16) Lasix 20mg PO daily Cardio consult - Dr. Anderson - help appreciated 8) Alzheimer's Namenda 10mg PO HS 9) Prophylaxis Lovenox 40mg SC daily Protonix 40mg PO daily SCDs All management per Dr. Holder
[2016-08-12] MEDS: (Novolog) Insulin Aspart, Recombinant 100 u/ml 10 ml vial SC SCH ×3 (10:48→17:51)
--- NOTE | 2016-08-12 13:51 | RAD ---
HISTORY: picc line placement COMPARISON: 08/06/2016 FINDINGS: LUNGS: No active pulmonary disease. PLEURA: Blunting of left costophrenic angle may reflect small pleural effusion. No right pleural effusion seen. CARDIOVASCULAR: Normal heart size. New left PICC catheter terminating in the region of the SVC. OSSEOUS STRUCTURES: Right glenohumeral arthroplasty. VISUALIZED UPPER ABDOMEN: Normal. OTHER FINDINGS: None. IMPRESSION: Possible small left pleural effusion. New left PICC catheter terminates in the region of the SVC.
--- NOTE | 2016-08-12 15:39 | CP.PCM.PN ---
Subjective - Date & Time of Evaluation Date of Evaluation: 08/12/16 Time of Evaluation: 13:00 - Subjective Subjective: in bed no cp, no sob Objective - Vital Signs/Intake and Output Vital Signs (last 24 hours): Temp Pulse Resp BP Pulse Ox 97.5 F L 65 20 129/74 97 08/12/16 08:23 08/12/16 08:23 08/12/16 08:23 08/12/16 10:28 08/12/16 08:23 Intake and Output: 08/12/16 08/12/16 06:59 18:59 Intake Total 100 Output Total 1200 Balance -1100 - Medications Medications: Current Medications Acetaminophen (Tylenol 325mg Tab) 650 mg PO Q6H PRN PRN Reason: Pain, moderate (4-7) Last Admin: 08/12/16 13:12 Dose: 650 mg Albuterol/Ipratropium (Duoneb 3 Mg/0.5 Mg (3 Ml) Ud) 3 ml INH RQ4 [facility] Last Admin: 08/12/16 11:26 Dose: 3 ml Amlodipine Besylate (Norvasc) 10 mg PO DAILY [facility] Last Admin: 08/12/16 10:27 Dose: 10 mg Carvedilol (Coreg) 12.5 mg PO BID [facility] Last Admin: 08/12/16 10:28 Dose: 12.5 mg Docusate Sodium (Colace) 100 mg PO BID [facility] Last Admin: 08/12/16 10:26 Dose: 100 mg Enoxaparin Sodium (Lovenox) 40 mg SC DAILY [facility] Last Admin: 08/12/16 10:24 Dose: 40 mg Famotidine (Pepcid) 20 mg PO DAILY [facility] Last Admin: 08/12/16 10:29 Dose: 20 mg Ferrous Sulfate (Feosol) 325 mg PO TID [facility] Last Admin: 08/12/16 10:28 Dose: 325 mg Furosemide (Lasix) 20 mg PO DAILY [facility] Last Admin: 08/12/16 10:27 Dose: 20 mg Gabapentin (Neurontin) 100 mg PO TID [facility] Last Admin: 08/12/16 13:12 Dose: 100 mg Meropenem 500 mg/ Sodium (Chloride) 100 mls @ 100 mls/hr IVPB Q8 [facility] Last Admin: 08/12/16 14:50 Dose: 100 mls/hr Insulin Aspart (Novolog) 0 unit SC ACHS [facility] PRN Reason: Protocol Last Admin: 08/12/16 13:12 Dose: 10 unit Memantine (Namenda) 10 mg PO HS [facility] Last Admin: 08/11/16 21:47 Dose: 10 mg Methylprednisolone (Solu-Medrol) 40 mg IVP Q12 [facility] Last Admin: 08/12/16 10:25 Dose: 40 mg Montelukast Sodium (Singulair) 10 mg PO HS [facility] Last Admin: 08/11/16 21:47 Dose: 10 mg Moxifloxacin HCl (Avelox) 400 mg PO DAILY [facility] Last Admin: 08/12/16 10:27 Dose: 400 mg Naproxen (Anaprox Ds) 550 mg PO Q12H [facility] Last Admin: 08/12/16 10:27 Dose: 550 mg Pantoprazole Sodium (Protonix Ec Tab) 40 mg PO DAILY [facility] Last Admin: 08/12/16 10:26 Dose: 40 mg Polyethylene Glycol (Miralax) 17 gm PO DAILY [facility] Last Admin: 08/12/16 10:24 Dose: 17 gm Fluticasone/Salmeterol (Advair Diskus 250/50) 1 puff INH RQ12 [facility] Last Admin: 08/12/16 07:21 Dose: 1 puff - Labs Labs: 08/09/16 07:55 08/09/16 07:55 - Constitutional Appears: Non-toxic - Head Exam Head Exam: ATRAUMATIC - Eye Exam Eye Exam: EOMI - ENT Exam ENT Exam: Mucous Membranes Moist - Neck Exam Neck Exam: absent: Lymphadenopathy, Thyromegaly - Respiratory Exam Respiratory Exam: Clear to Ausculation Bilateral. absent: Rales - Cardiovascular Exam Cardiovascular Exam: REGULAR RHYTHM, Murmur - GI/Abdominal Exam GI & Abdominal Exam: Normal Bowel Sounds. absent: Organomegaly - Rectal Exam Rectal Exam: Deferred - Extremities Exam Extremities Exam: Normal Capillary Refill. absent: Calf Tenderness - Neurological Exam Neurological Exam: Alert, Oriented x3 - Psychiatric Exam Psychiatric exam: Depressed - Skin Skin Exam: Intact Assessment and Plan (1) Diabetes 1.5, managed as type 2 Status: Chronic (2) Complaint of debility and malaise Status: Chronic (3) Hypertension Status: Chronic (4) COPD (chronic obstructive pulmonary disease) Status: Acute (5) Respiratory failure Status: Acute
[2016-08-12 15:48] VITALS: O2SAT 99
[2016-08-12 16:17] LABS: BASO % 0.2 % (0.0-2.0); LYMPH # 1.2 K/uL (1.0-4.3); LYMPH % 7.5 % (20.0-40.0); MEAN CELL VOLUME 81.3 fL (81.0-99.0); MEAN CORPUSCULAR HEMOGLOBIN 25.7 pg (27.0-31.0); MEAN CORPUSCULAR HGB CONC 31.6 g/dL (33.0-37.0); MEAN PLATELET VOLUME 7.9 fL (7.2-11.7); MONO # 1.1 K/uL (0.0-0.8); MONO % 6.9 % (0.0-10.0); PLATELET COUNT 219 K/uL (130-400); RED CELL DISTRIBUTION WIDTH 12.8 % (11.5-14.5); WHITE BLOOD COUNT 16.5 K/uL (4.8-10.8)
[2016-08-12 16:24] LABS: CHLORIDE 89 mmol/L (98-107)
[2016-08-12 16:25] LABS: POTASSIUM 3.4 mmol/L (3.6-5.2); SODIUM 130 mmol/L (132-148)
[2016-08-12 16:27] LABS: GFR AFRICAN-AMERICAN > 60
[2016-08-12 16:28] LABS: ALB/GLOB RATIO 1.1 (1.0-2.1); ALKALINE PHOSPHATASE 51 U/L (38-126); ALT/SGPT 22 U/L (9-52); AST/SGOT 17 U/L (14-36); BILIRUBIN,TOTAL 0.6 mg/dL (0.2-1.3); BLOOD UREA NITROGEN 25 mg/dL (7-17); CALCIUM 8.2 mg/dl (8.6-10.4); CARBON DIOXIDE 28 mmol/L (22-30); GLUCOSE,RANDOM 239 mg/dL (65-105)
[2016-08-12 18:02] LABS: NEUTROPHIL 88 % (50-75); TOTAL CELLS COUNTED 100
[2016-08-12 18:40] VITALS: BP 147/61; PULSE 79; RESP 20; TEMP 97.6
--- NOTE | 2016-08-15 07:46 | DS ---
The patient admitted to the hospital with chief complaint of shortness of breath, weak, tiredness. T he patient placed on bedrest, supportive care, bronchodilators. The patient got treatment, improved and sent back to [facility]. DIAGNOSES: The patient has chronic obstructive pulmonary disease, bronchitis. Brenda Vazquez MD cc: [id number] TT: 08/13/2016 09:56:24 tn
--- NOTE | 2016-09-02 11:55 | CARD ---
APPROVED REPORT EKG Measurement Heart [id number] <Conclusion> Normal sinus rhythm Left ventricular hypertrophy with repolarization abnormality Abnormal ECG
== END 2016-08-12 18:20 | DRG 189 ==
LOC: C.ER 00:17 → C.9I 02:05 → C.3T 08-07 17:17 → C.5T 08-09 20:52
PROVIDERS: ADMIT Internal Medicine Pulmonary Disease; ATTEND Internal Medicine Pulmonary Disease
PROC: 5A0945Z Assistance with Respiratory Ventilation, 24-96 Consecutive Hours (ICD-10-PCS; principal; 2016-08-06)
PROC: 02HV33Z Insertion of Infusion Device into Superior Vena Cava, Percutaneous Approach (ICD-10-PCS; 2016-08-12)
DX: J96.02 Acute respiratory failure with hypercapnia (principal); G93.41 Metabolic encephalopathy; J18.9 Pneumonia, unspecified organism; J44.0 Chronic obstructive pulmonary disease with (acute) lower respiratory infection; E87.5 Hyperkalemia; J45.901 Unspecified asthma with (acute) exacerbation; J44.1 Chronic obstructive pulmonary disease with (acute) exacerbation; N39.0 Urinary tract infection, site not specified; G30.9 Alzheimer's disease, unspecified; F02.80 Dementia in other diseases classified elsewhere, unspecified severity, without behavioral disturbance, psychotic disturbance, mood disturbance, and anxiety; I10 Essential (primary) hypertension; E11.9 Type 2 diabetes mellitus without complications; E78.5 Hyperlipidemia, unspecified; Z96.651 Presence of right artificial knee joint; Z96.611 Presence of right artificial shoulder joint; R53.81 Other malaise; M19.90 Unspecified osteoarthritis, unspecified site; M94.0 Chondrocostal junction syndrome [Tietze]; K59.00 Constipation, unspecified; B96.4 Proteus (mirabilis) (morganii) as the cause of diseases classified elsewhere; Z88.0 Allergy status to penicillin; Z79.84 Long term (current) use of oral hypoglycemic drugs

== ENCOUNTER 2017-02-05 07:16 | Inpatient (IN) | payer MEDICARE, MEDICAID ==
[2017-02-05] MEDS ORDERED: Albuterol-Ipratrop 3 mg / 0.5 (3 ml) UD IH STA (07:45)
[2017-02-05] MEDS ORDERED: Vancomycin 1 gm/NS 200 ml 1 GM/200 ML BAG IVPB STA (07:48)
[2017-02-05] MEDS ORDERED: Cefepime IV 1 gm in Dextrose 1 GM/50 ML BAG IVPB STA (07:48)
[2017-02-05] MEDS ORDERED: MethylPREDNISolone 40 mg Vial IVP STA (07:48)
[2017-02-05] MEDS ORDERED: Sodium Chloride 0.9% 1,000 ML IV STA (07:50)
--- NOTE | 2017-02-05 08:00 | C.PDOC ---
History Of Present Illness 81 y/o F c PMHx COPD, HTN, DM, dementia sent from [place] for dyspnea and fever. Duoneb administered by EMS en route. Further HPI and ROS unobtainable due to patient's dementia and clinical condition. Time Seen by Provider: 02/05/17 07:29 Chief Complaint (Nursing): Shortness Of Breath Past Medical History Vital Signs: Last Vital Signs Temp 100.4 F H 02/05/17 08:30 Pulse 84 02/05/17 11:13 Resp 22 02/05/17 10:55 BP 102/55 L 02/05/17 10:55 Pulse Ox 100 02/05/17 10:55 - Medical History PMH: Anxiety, Asthma, COPD, Dementia, HTN Denies: Chronic Kidney Disease - [facility] Procedures ASSISTANCE WITH RESPIRATORY VENTILATION, 24-96 HRS (08/06/16) INSERTION OF INFUSION DEV INTO SUP VENA CAVA, PERC APPROACH (08/06/16) Family History: States: Unknown Family Hx - Social History Hx Alcohol Use: No Hx Substance Use: No - Immunization History Hx Tetanus Toxoid Vaccination: No Hx Influenza Vaccination: No Review Of Systems Review Of Systems: ROS cannot be obtained secondary to pt's inabilty to answer questions. Physical Exam - Physical Exam Additional Physical Exam Comments: Constitutional: In respiratory distress. Head: Normocephalic. Atraumatic. Eyes: PERRL. ENT: Moist mucous membranes. Neck: Supple. Cardiovascular: Tachycardic. Radial pulses 2+ bilaterally. Chest: No tenderness. Respiratory: Tachypneic. Hypoxic to 80s on room air. Diffuse rhonchi. GI: Soft. Nondistended. Abdominal tenderness diffusely. Back: No CVA tenderness. Musculoskeletal: Bilateral lower extremity tenderness without swelling. Skin: No rashes. Neurologic: Alert, no focal deficit. ED Course And Treatment - Laboratory Results Result Diagrams: 02/05/17 08:05 02/05/17 08:05 O2 Sat by Pulse Oximetry: 88 Medical Decision Making Medical Decision Making: EKG Sinus tach 117, no ST elevations. CXR shows no infiltrate or consolidation. Discussed CT with radiologist, no acute infectious process identified. pCO2 on blood gas elevated. Lactate negative. UTI on UA. Influenza negative. Patient placed on BiPap, much improved with duonebs, solumedrol, IVF. HR below 100, 100% pulse oximetry, tachypnea corrected, blood pressure stable and normal. Dr. Fraire accepts patient to his service on telemetry. Disposition Discussed With Dr.: Evens Fraire Doctor Will See Patient In The: Hospital - Disposition Disposition: HOSPITALIZED Disposition Time: 10:05 Condition: GUARDED Forms: [facility] (Slovak) - Clinical Impression Clinical Impression: Asthma exacerbation, Sepsis, UTI (urinary tract infection)
[2017-02-05 08:09] LABS: BASO # 0.1 K/uL (0.0-0.2); BASO % 0.6 % (0.0-2.0); HEMATOCRIT 41.4 % (34.0-47.0); LYMPH # 3.2 K/uL (1.0-4.3); LYMPH % 17.9 % (20.0-40.0); MEAN CELL VOLUME 80.9 fL (81.0-99.0); MEAN CORPUSCULAR HEMOGLOBIN 25.4 pg (27.0-31.0); MEAN CORPUSCULAR HGB CONC 31.4 g/dL (33.0-37.0); MEAN PLATELET VOLUME 7.7 fL (7.2-11.7); MONO # 1.3 K/uL (0.0-0.8); MONO % 7.5 % (0.0-10.0); RED CELL DISTRIBUTION WIDTH 14.4 % (11.5-14.5); WHITE BLOOD COUNT 17.8 K/uL (4.8-10.8)
[2017-02-05] MEDS ORDERED: Albuterol-Ipratrop 3 mg / 0.5 (3 ml) UD ONE (08:15)
[2017-02-05 08:18] LABS: CHLORIDE 93 mmol/L (98-107)
[2017-02-05 08:19] LABS: POTASSIUM 4.3 mmol/L (3.6-5.2); SODIUM 136 mmol/L (132-148)
[2017-02-05 08:20] LABS: GFR AFRICAN-AMERICAN > 60
[2017-02-05 08:21] VITALS: BMI 36.6
[2017-02-05 08:21] LABS: ALKALINE PHOSPHATASE 68 U/L (38-126); ALT/SGPT 25 U/L (9-52); AST/SGOT 19 U/L (14-36); BILIRUBIN,TOTAL 0.7 mg/dL (0.2-1.3); BLOOD UREA NITROGEN 15 mg/dL (7-17); CARBON DIOXIDE 33 mmol/L (22-30); TOTAL PROTEIN 8.5 g/dL (6.3-8.3)
[2017-02-05 08:22] LABS: CALCIUM 9.7 mg/dl (8.6-10.4); GLUCOSE,RANDOM 230 mg/dL (65-105); MAGNESIUM 1.3 mg/dL (1.6-2.3); PHOSPHOROUS 4.1 mg/dL (2.5-4.5)
[2017-02-05] MEDS ORDERED: Vancomycin 1 GM 1 GM/250 ML BAG IVPB ONE (08:25)
[2017-02-05 08:33] LABS: INR 1.1
[2017-02-05] MEDS ORDERED: Iodixanol 320 MG/ML 100 ML BOTTLE IV ONE (08:55)
[2017-02-05] MEDS ORDERED: Iohexol 300 100 ML IJ ONE (08:57)
[2017-02-05 09:10] LABS: RBC URINE 55 /hpf (0-3); URINE BACTERIA MOD (<OCC); URINE BILIRUBIN NEGATIVE (NEGATIVE); URINE BLOOD 2+ (NEGATIVE); URINE COLOR Yellow (YELLOW); URINE GLUCOSE (UA) NORMAL (Normal); URINE KETONE NEGATIVE (NEGATIVE); URINE LEUKOCYTE ESTERASE 3+ Leu/uL (Negative); URINE PROTEIN 2+ mg/dL (NEGATIVE); URINE UROBILINOGEN NORMAL mg/dL (0.2-1.0); WBC CLUMPS MOD /hpf; WBC URINE 1605 /hpf (0-5)
--- NOTE | 2017-02-05 10:12 | RAD ---
HISTORY: dyspnea, fever COMPARISON: Comparison made with prior study 08/12/2016 FINDINGS: LUNGS: Poor inspiration with low lung volumes, crowded bronchovascular markings and mild bibasilar atelectasis. There is blunting left CP angle which could be secondary to small effusion and/or chronic pleural thickening PLEURA: No significant pleural effusion identified, no pneumothorax apparent. CARDIOVASCULAR: Normal. OSSEOUS STRUCTURES: Re- demonstrated is right humeral head arthroplasty. VISUALIZED UPPER ABDOMEN: Normal. OTHER FINDINGS: None. IMPRESSION: Poor inspiration with low lung volumes, crowded bronchovascular markings and mild bibasilar atelectasis. . Blunting left CP angle which could be secondary to small effusion and/or chronic pleural thickening
[2017-02-05 11:11] LABS: DRAW SITE L/B
--- NOTE | 2017-02-05 12:38 | CT ---
PROCEDURE: CT Chest, Abdomen and Pelvis with intravenous contrast HISTORY: sepsis, dyspnea, abdominal tenderness COMPARISON: None. TECHNIQUE: IV dose administered: 100 cc Omnipaque 300 Radiation dose: Total exam DLP = 727.65 mGy-cm. This CT exam was performed using one or more of the following dose reduction techniques: Automated exposure control, adjustment of the mA and/or kV according to patient size, and/or use of iterative reconstruction technique. Note that the examination is limited the due to streak and beam hardening artifact arising from the upper extremities, (the right-sided which contains a right humeral head replacement) which have not been moved. FINDINGS: CT CHEST WITH CONTRAST: LUNGS: Chronic biapical pleural thickening. . There are several parenchymal and subpleural nodules seen in the right upper lobe ranging between 35-6 mm nonspecific. Additionally, few tiny subpleural nodules and nodular opacities seen throughout the left upper lobe of. All these of foci could read present postinflammatory changes, the possibility of small metastatic lesions cannot be excluded. Clinical correlation recommended. MEDIASTINUM: Heart is enlarged. No significant pericardial effusion. . Ascending thoracic aorta measures approximately 3.04 cm and descending thoracic aorta measures approximately 3.5 cm. Pulmonary trunk measures approximately 3.0 cm. . Central airways are midline and patent. No endobronchial lesions. LYMPH NODES: Questionable small sub carinal lymph nodes. There are a few tiny para-aortic and paratracheal lymph nodes. PLEURA: Chronic biapical pleural thickening. No evidence of effusion or pneumothorax. BONES: Mild diffuse demineralization. Mild multilevel degenerative spondylosis of the thoracic spine. There are no acute compression fractures no retropulsed fragments. Moderate the the fibroid dextroscoliosis centered in the thoracolumbar junction. OTHER FINDINGS: The there has been several tiny elliptical shaped calcific density seen in the posterior aspect right mid and lower abdomen near abutment and not felt to be within the right ureter. These could represent calcified venous phleboliths. CT ABDOMEN AND PELVIS: LIVER: Mild to moderate diffuse fatty hepatic infiltration. Portal and splenic veins are opacified. GALLBLADDER AND BILE DUCTS: Gallbladder has been surgically removed with metallic clips in the gallbladder fossa. There is dilatation of the common bile duct are felt to be to advanced age and postcholecystectomy status. PANCREAS: The pancreas is atrophic and fatty replaced. No obvious pancreatic mass collection or calcification seen. SPLEEN: .Spleen exhibits normal size and attenuation pattern without mass collection or calcification. ADRENALS: There are no adrenal masses. KIDNEYS AND URETERS: Kidneys demonstrate symmetric nephrograms. No evidence of nephrolithiasis or hydronephrosis. Min. There is a elliptical shaped approximately 2.7 cm low-attenuation focus within upper/ midpole right kidney that probably represents a hyperdense cyst as Hounsfield units register in the low 30s. Ultrasound followup could be performed to confirm. The prominent of left-sided extrarenal pelvis. VASCULATURE: Partially calcified atherosclerotic plaque seen along the abdominal aorta. No evidence of abdominal aortic aneurysm. BOWEL: Evaluation of the bowel is of somewhat limited due to the lack of oral contrast material. Stomach is incompletely distended which presumably accounts for thick-walled appearance. Gastritis or other intrinsic/invasive wall lesion not excluded. Visualized loops of small bowel exhibit normal contour and caliber. No evidence of acute mechanical small bowel obstruction. Stool and air seen throughout the large bowel. There are scattered colonic diverticula seen along the sigmoid and distal descending colon however no definite radiographic evidence of acute diverticulitis. APPENDIX: Appendix is not seen with any certainty however no obvious inflammatory changes right lower quadrant of the abdomen PERITONEUM: Unremarkable. No free fluid. No free air. LYMPH NODES: No significant abdominal adenopathy. BLADDER: Evaluation of the urinary bladder is limited the due to in situ unclamped De Guzman catheter. The urinary bladder is collapsed about a De Guzman catheter. Few small bubbles of the intraluminal air likely due to instrumentation. The REPRODUCTIVE: Status post hysterectomy. BONES: Multilevel degenerative spondylosis of the lumbar spine mid OTHER FINDINGS: None. IMPRESSION: Mild biapical pleural thickening. There are multiple pleural based nodular densities scattered throughout both lung hernandez. These could be postinflammatory however the possibility of small metastatic lesions cannot be excluded. Mild thickening of the superior margin of the right major fissure. Status post cholecystectomy. Fatty hepatic infiltration. Status post hysterectomy. Findings discussed with Dr. Waller at approximately 11:30 a.m. with written down and read back verification.
[2017-02-05] MEDS: Cefepime IV 1 gm in Dextrose 1 GM/50 ML BAG IVPB SCH ×2 (13:54→21:51)
[2017-02-05] MEDS: Sodium Chloride 0.45% 1,000 ML IV SCH (13:55)
--- NOTE | 2017-02-05 15:01 | CP.PCM.CON ---
History of Present Illness - History of Present Illness History of Present Illness: 81 y/o F c PMHx COPD, HTN, DM, dementia sent from [place] for dyspnea and fever. Duoneb administered by EMS en route. Family says sent for UTI/ sepsis ID consulted for this apparently was treated for this in [place] w/o success + Hx allergy PCN - Medical History PMH: Anxiety, Asthma, COPD, Dementia, HTN, recurrent UTI ( ESBL + in past ) Denies: Chronic Kidney Disease - [facility] Procedures ASSISTANCE WITH RESPIRATORY VENTILATION, 24-96 HRS (08/06/16) INSERTION OF INFUSION DEV INTO SUP VENA CAVA, PERC APPROACH (08/06/16) Review of Systems - Review of Systems Systems not reviewed;Unavailable: Altered Mental Status - Constitutional Constitutional: As Per HPI, Anorexia - EENT Eyes: absent: As Per HPI, Blind Spots, Blurred Vision, Change in Vision, Decreased Night Vision, Diplopia, Discharge, Dry Eye, Exophthalmos, Floaters, Irritation, Itchy Eyes, Loss of Peripheral Vision, Pain, Photophobia, Requires Corrective Lenses, Sees Flashes, Spots in Vision, Tunnel Vision, Other Visual Disturbances, Loss of Vision, Other Ears: absent: As Per HPI, Decreased Hearing, Ear Discharge, Ear Pain, Tinnitus, Abnormal Hearing, Disequilibrium, Dizziness, Other - Breasts Breasts: absent: As Per HPI, Change in Shape, Mass, Pain, Nipple Discharge, Nipple Inversion, Skin Changes, Swelling, Other - Cardiovascular Cardiovascular: As Per HPI - Respiratory Respiratory: As Per HPI, Cough, Dyspnea. absent: Hemoptysis - Gastrointestinal Gastrointestinal: absent: As Per HPI, Abdominal Pain, Belching, Bloating, Change in Bowel Habits, Change in Stool Character, Coffee Ground Emesis, Constipation, Cramping, Diarrhea, Dyspepsia, Dysphagia, Early Satiety, Excessive Flatus, Fecal Incontinence, Heartburn, Hematemesis, Hematochezia, Loose Stools, Melena, Nausea, Odynophagia, Temesmus, Vomiting, Other - Genitourinary Genitourinary: As Per HPI - Reproductive: Female Reproductive:Female: absent: As Per HPI, Amenorrhea, Amenorrhea/ Control, Currently Menstual, Cycle <21 Days, Cycle >35 Days, Cycle Variable, Menses 1-7 Days, Menses >/= 8 Days, Menses Variable, Cycle > 4 Weeks Between, No Menses for 6 Months, Heavy Menses, Light Menses, Normal Menses, Spotting Between Cycles , S/P Hysterectomy, Menopausal, Post Menopausal, Premenarche, Abnormal Vaginal Bleeding, Dysmenorrhea, Dyspareunia, Genital Lesions, Genital Pruritis, Pelvic Pain, Prolapse Symptoms, Sexual Dysfunction, Vaginal Discharge, Vaginal Dryness , Vaginal Odor, Vaginal Pruritis, Other - Menstruation Menstruation: absent: As Per HPI, Amenorrhea, Amenorrhea/ Control, Currently Menstual, Cycle <21 Days, Cycle >35 Days, Cycle Variable, Menses 1-7 Days, Menses >/= 8 Days, Menses Variable, Cycle > 4 Weeks Between, No Menses for 6 Months, Heavy Menses, Light Menses, Normal Menses, Spotting Between Cycles , S/P Hysterectomy, Menopausal, Post Menopausal, Premenarche, Abnormal Vaginal Bleeding, Dysmenorrhea, Other - Musculoskeletal Musculoskeletal: absent: As Per HPI, Abnormal Gait, Arthralgias, Atrophy, Back Pain, Deformity, Joint Swelling, Limited Range of Motion, Loss of Height, Muscle Cramps, Muscle Weakness, Myalgias, Neck Pain, Numbness, Radiating Pain into Limb, Stiffness, Tingling, Other - Integumentary Integumentary: absent: As Per HPI, Acne, Alopecia, Bleeding Lesions, Change in Hair, Change in Nails, Change in Pigmentation, Changing Lesions, Dry Skin, Erythema, Furuncle, Hirsutism, Lesions, New Lesions, Non-Healing Lesions, Photosensitivity, Pruritus, Rash, Skin Pain, Skin Ulcer, Sores, Striae, Swelling , Unusual Bruising, Wounds, Jaundice, Other - Neurological Neurological: absent: As Per HPI, Abnormal Gait, Abnormal Hearing, Abnormal Movements, Abnormal Speech, Behavioral Changes, Burning Sensations, Confusion, Convulsions, Disequilibrium, Dizziness, Numbness, Focal Weakness, Frequent Falls , Headaches, Lack of Coordination, Loss of Vision, Memory Loss, Paresthesias, Radicular Pain, Restless Legs, Sensory Deficit, Syncope, Tingling, Tremor, Vertigo, Weakness, Other Visual Disturbances, Other - Psychiatric Psychiatric: absent: As Per HPI, Abnormal Sleep Pattern, Anhedonia, Anxiety, Auditory Hallucinations, Behavioral Changes, Change in Appetite, Change in Libido, Confusion, Depression, Difficulty Concentrating, Hallucinations, Homicidal Ideation, Hopelessness, Irritability, Memory Loss, Mood Swings, Panic Attacks, Paranoia, Suicidal Ideation, Visual Hallucinations, Tactile Hallucinations, Other - Endocrine Endocrine: absent: As Per HPI, Change in Body Appearance, Change in Libido, Cold Intolorance, Deepening of Voice, Excessive Sweating, Fatigue, Flushing, Heat Intolorance, Increase in Ring/Shoe/Hat Size, Palpitations, Polydipsia, Polyphagia, Polyuria, Other - Hematologic/Lymphatic Hematologic: absent: As Per HPI, Easy Bleeding, Easy Bruising, Lymphadenopathy, Other Past Patient History - Past Medical History & Family History Past Medical History?: Yes - Past Social History Smoking Status: Never Smoked - CARDIAC Hx Hypertension: Yes - PULMONARY Hx Asthma: Yes Hx Chronic Obstructive Pulmonary Disease (COPD): Yes - NEUROLOGICAL Hx Dementia: Yes - HEENT Hx HEENT Problems: No - RENAL Hx Chronic Kidney Disease: No - ENDOCRINE/METABOLIC Hx Diabetes Mellitus Type 2: Yes - HEMATOLOGICAL/ONCOLOGICAL Hx Blood Disorders: No - INTEGUMENTARY Hx Dermatological Problems: No - MUSCULOSKELETAL/RHEUMATOLOGICAL Hx Back Pain: Yes Hx Falls: Yes - PSYCHIATRIC Hx Anxiety: Yes Hx Substance Use: No - SURGICAL HISTORY Other/Comment: 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 - ANESTHESIA Hx Anesthesia: Yes Hx Anesthesia Reactions: No Meds Allergies/Adverse Reactions: Allergies Allergy/AdvReac Type Severity Reaction Status Date / Time codeine Allergy Verified 10/17/15 18:04 Penicillins Allergy Verified 10/17/15 18:04 - Medications Medications: Current Medications Acetaminophen (Tylenol 325mg Tab) 650 mg PO Q4H PRN PRN Reason: Fever >100.4 F Albuterol Sulfate (Albuterol 0.083% Inhal Gabbi (2.5 Mg/3 Ml) Ud) 2.5 mg INH Q6H PRN PRN Reason: Wheezing Cefepime HCl (Maxipime Iv 1 Gm Premix) 1 gm in 50 mls @ 100 mls/hr IVPB Q12H [facility] Last Admin: 02/05/17 13:54 Dose: Not Given Sodium Chloride (Sodium Chloride 0.45%) 1,000 mls @ 40 mls/hr IV .Q24H TANA Last Admin: 02/05/17 13:55 Dose: 40 mls/hr Physical Exam - Constitutional Appears: Confused, Chronically Ill - Head Exam Head Exam: NORMOCEPHALIC - Eye Exam Eye Exam: PERRL. absent: Scleral icterus - ENT Exam ENT Exam: Mucous Membranes Dry, Normal External Ear Exam - Neck Exam Neck exam: Negative for: Lymphadenopathy - Respiratory Exam Respiratory Exam: Decreased Breath Sounds, Rhonchi - Cardiovascular Exam Cardiovascular Exam: REGULAR RHYTHM, +S1, +S2 - GI/Abdominal Exam GI & Abdominal Exam: Diminished Bowel Sounds, Soft. absent: Tenderness - Rectal Exam Rectal Exam: Deferred - Exam Exam: NORMAL INSPECTION - Extremities Exam Extremities exam: Positive for: pedal pulses present. Negative for: calf tenderness, tenderness - Back Exam Back exam: absent: CVA tenderness (L), CVA tenderness (R), paraspinal tenderness - Neurological Exam Neurological exam: Alert, Altered, CN II-XII Intact - Psychiatric Exam Psychiatric exam: Depressed - Skin Skin Exam: Dry Additional comments: muscle atrophy - wasting Results - Vital Signs Recent Vital Signs: Last Vital Signs Temp 98.8 F 02/05/17 14:51 Pulse 88 02/05/17 14:51 Resp 20 02/05/17 14:51 BP 106/71 02/05/17 14:51 Pulse Ox 100 02/05/17 14:51 - Labs Result Diagrams: 02/05/17 08:05 02/05/17 08:05 Labs: Laboratory Results - last 24 hr 02/05/17 02/05/17 02/05/17 07:31 08:05 08:05 WBC 17.8 H RBC 5.12 Hgb 13.0 Hct 41.4 MCV 80.9 L MCH 25.4 L MCHC 31.4 L RDW 14.4 Plt Count 213 MPV 7.7 Neut % (Auto) 74.0 Lymph % (Auto) 17.9 L Osborne % (Auto) 7.5 Eos % (Auto) 0.0 Baso % (Auto) 0.6 Neut # 13.1 H Lymph # 3.2 Osborne # 1.3 H Eos # 0.0 Baso # 0.1 PT INR APTT Puncture Site pCO2 pO2 HCO3 ABG pH ABG Total CO2 ABG O2 Saturation ABG Base Excess Bobby Test ABG Potassium Glucose Lactate Liter Flow Sodium 136 Potassium 4.3 Chloride 93 L Carbon Dioxide 33 H Anion Gap 14 BUN 15 Creatinine 0.6 L Est GFR ( Amer) > 60 Est GFR (Non-Af Amer) > 60 POC Glucose (mg/dL) 243 H Random Glucose 230 H Calcium 9.7 Phosphorus 4.1 Magnesium 1.3 L Total Bilirubin 0.7 AST 19 ALT 25 Alkaline Phosphatase 68 Total Creatine Kinase 31 CK-MB (Mass) < 0.22 Troponin I < 0.0120 NT-Pro-B Natriuret Pep 461 Total Protein 8.5 H Albumin 4.2 Globulin 4.3 H Albumin/Globulin Ratio 1.0 Lipase 82 Arterial Blood Potassium Urine Color Urine Clarity Urine pH Ur Specific Montgomery Urine Protein Urine Glucose (UA) Urine Ketones Urine Blood Urine Nitrate Urine Bilirubin Urine Urobilinogen Ur Leukocyte Esterase Urine WBC (Auto) Urine RBC (Auto) Urine WBC Clumps (Auto) Urine Bacteria Influenza Typ A,B (EIA) 02/05/17 02/05/17 02/05/17 08:05 08:20 08:23 WBC RBC Hgb Hct MCV MCH MCHC RDW Plt Count MPV Neut % (Auto) Lymph % (Auto) Osborne % (Auto) Eos % (Auto) Baso % (Auto) Neut # Lymph # Osborne # Eos # Baso # PT 12.6 H INR 1.1 APTT 89 H Puncture Site L/b pCO2 57 H pO2 77 L HCO3 30.2 H ABG pH 7.38 ABG Total CO2 35.4 H ABG O2 Saturation 97.3 ABG Base Excess 6.8 H Bobby Test Na ABG Potassium 3.7 Glucose 266 H Lactate 0.7 Liter Flow 5.0 Sodium 139.0 Potassium Chloride 103.0 Carbon Dioxide Anion Gap BUN Creatinine Est GFR ( Amer) Est GFR (Non-Af Amer) POC Glucose (mg/dL) Random Glucose Calcium Phosphorus Magnesium Total Bilirubin AST ALT Alkaline Phosphatase Total Creatine Kinase CK-MB (Mass) Troponin I NT-Pro-B Natriuret Pep Total Protein Albumin Globulin Albumin/Globulin Ratio Lipase Arterial Blood Potassium 3.7 Urine Color Urine Clarity Urine pH Ur Specific Montgomery Urine Protein Urine Glucose (UA) Urine Ketones Urine Blood Urine Nitrate Urine Bilirubin Urine Urobilinogen Ur Leukocyte Esterase Urine WBC (Auto) Urine RBC (Auto) Urine WBC Clumps (Auto) Urine Bacteria Influenza Typ A,B (EIA) Negative for flu a/b 02/05/17 08:48 WBC RBC Hgb Hct MCV MCH MCHC RDW Plt Count MPV Neut % (Auto) Lymph % (Auto) Osborne % (Auto) Eos % (Auto) Baso % (Auto) Neut # Lymph # Osborne # Eos # Baso # PT INR APTT Puncture Site pCO2 pO2 HCO3 ABG pH ABG Total CO2 ABG O2 Saturation ABG Base Excess Bobby Test ABG Potassium Glucose Lactate Liter Flow Sodium Potassium Chloride Carbon Dioxide Anion Gap BUN Creatinine Est GFR ( Amer) Est GFR (Non-Af Amer) POC Glucose (mg/dL) Random Glucose Calcium Phosphorus Magnesium Total Bilirubin AST ALT Alkaline Phosphatase Total Creatine Kinase CK-MB (Mass) Troponin I NT-Pro-B Natriuret Pep Total Protein Albumin Globulin Albumin/Globulin Ratio Lipase Arterial Blood Potassium Urine Color Yellow Urine Clarity Turbid Urine pH 5.0 Ur Specific Montgomery 1.012 Urine Protein 2+ H Urine Glucose (UA) Normal Urine Ketones Negative Urine Blood 2+ H Urine Nitrate Negative Urine Bilirubin Negative Urine Urobilinogen Normal Ur Leukocyte Esterase 3+ H Urine WBC (Auto) 1605 H Urine RBC (Auto) 55 H Urine WBC Clumps (Auto) Mod H Urine Bacteria Mod H Influenza Typ A,B (EIA) Assessment & Plan (1) Asthma exacerbation Status: Acute (2) Sepsis Status: Acute (3) Urinary tract infection Status: Acute (4) COPD (chronic obstructive pulmonary disease) Status: Acute (5) Dehydration Status: Acute - Assessment and Plan (Free Text) Assessment: await cultures cont IV antibiotics
[2017-02-05] MEDS: (Novolog) Insulin Aspart, Recombinant 100 u/ml 10 ml vial SC SCH (21:52)
[2017-02-05] MEDS: Albuterol 0.083% Inhal Sol (2.5 mg/3 mL) UD INH PRN (23:45)
--- NOTE | 2017-02-06 06:41 | HP ---
HISTORY OF PRESENT ILLNESS: I know September from [facility]. I last saw her about a week or so. She was resting comfortable in bed. Now she is here very lethargic and out of it. The patient is having a urinary tract infection and urosepsis. She is a kind of out of it with shortness of breath, nonverbal, not talking well. She is an 81-year-old female from the longterm with acute change in mentation secondary to infection. PAST MEDICAL HISTORY: She has a past medical history of COPD, hypertension, diabetes, and dementia. She does not walk. She basically stays in bed. She cannot give me a good history. She needs assistance for respiratory ventilation. She also is on a BiPAP now. FAMILY HISTORY: Hypertension in the family. SOCIAL HISTORY: No smoking, no drinking, no drugs. REVIEW OF SYSTEMS: She cannot give a review of systems. She is not able to answer questions. PHYSICAL EXAMINATION: VITAL SIGNS: She has 100.4 temperature; pulse is 135, now is 88; breathing is down to 20 per hour; oxygen saturation is up to 90+, on BiPAP. HEENT: Head is atraumatic and normocephalic. Extraocular muscles intact. NECK: Supple. HEART: Tachy with a regular rate. LUNGS: Decreased breath sounds, but fairly clear, some congestion. ABDOMEN: Soft and nontender. Positive bowel sounds in the abdomen. No CVA tenderness. EXTREMITIES: Trace edema. SKIN: For the most part is intact. NEUROLOGIC: She is not alert at this time. LABORATORY DATA: She has a 17.8 white count, 13 hemoglobin, 41.4 hematocrit, with 213 platelets. 136 sodium, potassium 4.3, BUN 15, creatinine 0.6, sugar is 230. EKG has sinus tach. Chest x-ray shows no infiltrate. There is a CAT scan, which showed mild right apical pleural thickening. There are multiple pleural-based nodule densities about the lung hernandez. This could be post-inflammatory or small metastatic lesions. I will call Pulmonary to evaluate that and also Infectious Disease for IV antibiotics. I am putting her on IV fluids. I am putting her on cefepime. I am putting her on her medications. I will see what Pulmonary and Infectious Disease have to say. We will check the labs tomorrow and hopefully she will improve. Discussed with family at length urinary tract infection, sepsis, and shortness of breath. Evens Fraire DO MTDTan
[2017-02-06] MEDS: Albuterol 0.083% Inhal Sol (2.5 mg/3 mL) UD INH PRN ×2 (07:44→22:08)
[2017-02-06] MEDS: (Novolog) Insulin Aspart, Recombinant 100 u/ml 10 ml vial SC SCH ×4 (08:25→21:54)
[2017-02-06 08:52] LABS: BASO % 0.1 % (0.0-2.0); MEAN CORPUSCULAR HEMOGLOBIN 25.8 pg (27.0-31.0)
[2017-02-06 09:14] LABS: CHLORIDE 97 mmol/L (98-107); HEMATOCRIT 33.5 % (34.0-47.0); LYMPH # 1.6 K/uL (1.0-4.3); LYMPH % 10.9 % (20.0-40.0); MEAN CELL VOLUME 79.7 fL (81.0-99.0); MEAN CORPUSCULAR HGB CONC 32.4 g/dL (33.0-37.0); MONO # 0.7 K/uL (0.0-0.8); RED CELL DISTRIBUTION WIDTH 14.5 % (11.5-14.5); WHITE BLOOD COUNT 14.3 K/uL (4.8-10.8)
[2017-02-06 09:15] LABS: SODIUM 135 mmol/L (132-148)
[2017-02-06 09:16] LABS: POTASSIUM 3.8 mmol/L (3.6-5.2)
[2017-02-06 09:18] LABS: AST/SGOT 19 U/L (14-36); BILIRUBIN,TOTAL 0.6 mg/dL (0.2-1.3); CARBON DIOXIDE 27 mmol/L (22-30); GFR AFRICAN-AMERICAN > 60
[2017-02-06 09:19] LABS: ALB/GLOB RATIO 1.2 (1.0-2.1); ALKALINE PHOSPHATASE 60 U/L (38-126); ALT/SGPT 18 U/L (9-52); BLOOD UREA NITROGEN 14 mg/dL (7-17); CALCIUM 8.8 mg/dl (8.6-10.4); GLUCOSE,RANDOM 271 mg/dL (65-105)
[2017-02-06] MEDS: Enoxaparin 40 mg Syringe SC SCH (09:34)
[2017-02-06] MEDS: Cefepime IV 1 gm in Dextrose 1 GM/50 ML BAG IVPB SCH ×2 (09:34→21:54)
--- NOTE | 2017-02-06 10:08 | PN ---
DATE: SUBJECTIVE: I saw Sheri resting comfortably in bed. She alert. She is comfortable. No complaints. No chest pain or shortness of breath. No abdominal pain. She is in good spirits. She is hungry. She is back to her baseline, may be IV antibiotics really helping. PHYSICAL EXAMINATION: GENERAL: She is very alert, looking at me, and she is hungry. VITAL SIGNS: She has 97.6 temperature, 86 pulse, 134/70 blood pressure, 20 respiratory rate, and 97% O2 saturation on nasal canula. HEENT: Head is atraumatic and normocephalic. HEART: Regular rate. LUNGS: Clear to auscultation. ABDOMEN: Soft, obese, and nontender. Positive bowel sounds. No guarding. No rebound. No CVA tenderness. EXTREMITIES: No edema. She looks a lot better. MEDICATIONS: She is currently on albuterol, Glucophage, Lovenox, Maxipime, NovoLog coverage, IV fluids, and Tylenol. LABORATORY DATA: Labs are pending this morning. Last blood sugar was 297. She has got Glucophage today. Calcium was 4.3 yesterday. ASSESSMENT AND PLAN: She was seen by Dr. Bailey, the Infectious Disease doctor, waiting for Pulmonary and Neuro to see her. We will continue with antibiotics, but overall, she is definitely improving. I ordered physical therapy. I ordered her a food. She is back to her baseline. We will watch her. I will continue with aggressive treatment and care. She is here for urosepsis, asthma, change in mentation, and she is much better. Evens Fraire DO MTDD
--- NOTE | 2017-02-06 11:41 | CP.PCM.PN ---
Subjective - Date & Time of Evaluation Date of Evaluation: 02/06/17 Time of Evaluation: 09:00 - Subjective Subjective: improving less sob no fever Objective - Vital Signs/Intake and Output Vital Signs (last 24 hours): Temp Pulse Resp BP Pulse Ox 97.5 F L 83 19 104/60 98 02/06/17 08:10 02/06/17 08:10 02/06/17 08:10 02/06/17 08:10 02/06/17 08:10 Intake and Output: 02/06/17 02/06/17 06:59 18:59 Intake Total 150 Output Total 800 Balance -650 - Medications Medications: Current Medications Acetaminophen (Tylenol 325mg Tab) 650 mg PO Q4H PRN PRN Reason: Fever >100.4 F Albuterol Sulfate (Albuterol 0.083% Inhal Gabbi (2.5 Mg/3 Ml) Ud) 2.5 mg INH Q6H PRN PRN Reason: Wheezing Last Admin: 02/06/17 07:44 Dose: 2.5 mg Enoxaparin Sodium (Lovenox) 40 mg SC DAILY [facility] Last Admin: 02/06/17 09:34 Dose: 40 mg Cefepime HCl (Maxipime Iv 1 Gm Premix) 1 gm in 50 mls @ 100 mls/hr IVPB Q12H TANA Last Admin: 02/06/17 09:34 Dose: 100 mls/hr Sodium Chloride (Sodium Chloride 0.45%) 1,000 mls @ 40 mls/hr IV .Q24H TANA Last Admin: 02/05/17 13:55 Dose: 40 mls/hr Insulin Aspart (Novolog) 0 unit SC ACHS TANA PRN Reason: Protocol Last Admin: 02/06/17 08:25 Dose: 4 unit Metformin HCl (Glucophage) 1,000 mg PO BID [facility] Last Admin: 02/06/17 09:34 Dose: 1,000 mg Pneumococcal Polyvalent Vaccine (Pneumovax 23 Vaccine) 0.5 ml IM .ONCE ONE Stop: 02/08/17 10:01 - Labs Labs: 02/06/17 08:37 02/06/17 08:37 PT 12.6 SECONDS (9.7-12.2) H 02/05/17 08:23 INR 1.1 02/05/17 08:23 APTT 89 SECONDS (21-34) H 02/05/17 08:23 - Constitutional Appears: Non-toxic, Chronically Ill - Head Exam Head Exam: NORMOCEPHALIC - Eye Exam Eye Exam: PERRL - ENT Exam ENT Exam: Mucous Membranes Dry - Neck Exam Neck Exam: absent: Lymphadenopathy - Respiratory Exam Respiratory Exam: Decreased Breath Sounds - Cardiovascular Exam Cardiovascular Exam: REGULAR RHYTHM - GI/Abdominal Exam GI & Abdominal Exam: Distended, Soft - Rectal Exam Rectal Exam: Deferred Assessment and Plan (1) Asthma exacerbation Status: Acute (2) Sepsis Status: Acute (3) Urinary tract infection Status: Acute (4) COPD (chronic obstructive pulmonary disease) Status: Acute (5) Dehydration Status: Acute - Assessment and Plan (Free Text) Assessment: cont rx as UTI
[2017-02-06] MEDS: Sodium Chloride 0.45% 1,000 ML IV SCH ×2 (13:30→22:23)
--- NOTE | 2017-02-06 15:14 | CP.PCM.CON ---
History of Present Illness - History of Present Illness History of Present Illness: developed respiratory distress and was treated with bipap known h/o asthma on nebs, inhaler CT chest without pneumonia only chronic changes Review of Systems - Review of Systems Systems not reviewed;Unavailable: Respiratory Distress - Respiratory Respiratory: Dyspnea, Dyspnea on Exertion, Chest Congestion, Excessive Mucous Production Past Patient History - Past Medical History & Family History Past Medical History?: Yes - Past Social History Smoking Status: Never Smoked - CARDIAC Hx Hypertension: Yes - PULMONARY Hx Chronic Obstructive Pulmonary Disease (COPD): Yes - NEUROLOGICAL Hx Dementia: Yes - HEENT Hx HEENT Problems: No - RENAL Hx Chronic Kidney Disease: No - ENDOCRINE/METABOLIC Hx Diabetes Mellitus Type 2: Yes - HEMATOLOGICAL/ONCOLOGICAL Hx Blood Disorders: No - INTEGUMENTARY Hx Dermatological Problems: No - MUSCULOSKELETAL/RHEUMATOLOGICAL Hx Back Pain: Yes Hx Falls: Yes - PSYCHIATRIC Hx Anxiety: Yes Hx Substance Use: No - SURGICAL HISTORY Other/Comment: 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 - ANESTHESIA Hx Anesthesia: Yes Hx Anesthesia Reactions: No Meds Allergies/Adverse Reactions: Allergies Allergy/AdvReac Type Severity Reaction Status Date / Time codeine Allergy Verified 10/17/15 18:04 Penicillins Allergy Verified 10/17/15 18:04 - Medications Medications: Current Medications Acetaminophen (Tylenol 325mg Tab) 650 mg PO Q4H PRN PRN Reason: Fever >100.4 F Albuterol Sulfate (Albuterol 0.083% Inhal Gabbi (2.5 Mg/3 Ml) Ud) 2.5 mg INH Q6H PRN PRN Reason: Wheezing Last Admin: 02/06/17 07:44 Dose: 2.5 mg Enoxaparin Sodium (Lovenox) 40 mg SC DAILY [facility] Last Admin: 02/06/17 09:34 Dose: 40 mg Cefepime HCl (Maxipime Iv 1 Gm Premix) 1 gm in 50 mls @ 100 mls/hr IVPB Q12H [facility] Last Admin: 02/06/17 09:34 Dose: 100 mls/hr Sodium Chloride (Sodium Chloride 0.45%) 1,000 mls @ 40 mls/hr IV .Q24H TANA Last Admin: 02/05/17 13:55 Dose: 40 mls/hr Insulin Aspart (Novolog) 0 unit SC ACHS TANA PRN Reason: Protocol Last Admin: 02/06/17 13:00 Dose: 4 unit Metformin HCl (Glucophage) 1,000 mg PO BID [facility] Last Admin: 02/06/17 09:34 Dose: 1,000 mg Pneumococcal Polyvalent Vaccine (Pneumovax 23 Vaccine) 0.5 ml IM .ONCE ONE Stop: 02/08/17 10:01 Physical Exam - Constitutional Appears: No Acute Distress, Chronically Ill - Head Exam Head Exam: ATRAUMATIC, NORMOCEPHALIC - Eye Exam Eye Exam: Normal appearance - ENT Exam ENT Exam: Mucous Membranes Moist - Neck Exam Neck exam: Positive for: Normal Inspection - Respiratory Exam Respiratory Exam: Decreased Breath Sounds, Prolonged Expiratory Phase - Cardiovascular Exam Cardiovascular Exam: +S1, +S2 - GI/Abdominal Exam GI & Abdominal Exam: Normal Bowel Sounds - Rectal Exam Rectal Exam: Deferred - Neurological Exam Neurological exam: Alert, Oriented x3 - Psychiatric Exam Psychiatric exam: Normal Affect, Normal Mood - Skin Skin Exam: Intact Results - Vital Signs Recent Vital Signs: Last Vital Signs Temp 97.5 F L 02/06/17 08:10 Pulse 83 02/06/17 12:02 Resp 19 02/06/17 08:10 BP 104/60 02/06/17 08:10 Pulse Ox 98 02/06/17 12:02 - Labs Result Diagrams: 02/06/17 08:37 02/06/17 08:37 Labs: Laboratory Results - last 24 hr 02/05/17 02/05/17 02/06/17 16:43 21:40 02:35 WBC RBC Hgb Hct MCV MCH MCHC RDW Plt Count MPV Neut % (Auto) Lymph % (Auto) Dickey % (Auto) Eos % (Auto) Baso % (Auto) Neut # Lymph # Dickey # Eos # Baso # Sodium Potassium Chloride Carbon Dioxide Anion Gap BUN Creatinine Est GFR ( Amer) Est GFR (Non-Af Amer) POC Glucose (mg/dL) 327 H 361 H 297 H Random Glucose Calcium Total Bilirubin AST ALT Alkaline Phosphatase Total Protein Albumin Globulin Albumin/Globulin Ratio 02/06/17 02/06/17 02/06/17 07:16 08:37 08:37 WBC 14.3 H RBC 4.20 Hgb 10.9 L D Hct 33.5 L MCV 79.7 L MCH 25.8 L MCHC 32.4 L RDW 14.5 Plt Count 183 MPV 8.0 Neut % (Auto) 84.0 H Lymph % (Auto) 10.9 L Dickey % (Auto) 5.0 Eos % (Auto) 0.0 Baso % (Auto) 0.1 Neut # 12.0 H Lymph # 1.6 Dickey # 0.7 Eos # 0.0 Baso # 0.0 Sodium 135 Potassium 3.8 Chloride 97 L Carbon Dioxide 27 Anion Gap 14 BUN 14 Creatinine 0.5 L Est GFR ( Amer) > 60 Est GFR (Non-Af Amer) > 60 POC Glucose (mg/dL) 301 H Random Glucose 271 H Calcium 8.8 Total Bilirubin 0.6 AST 19 ALT 18 Alkaline Phosphatase 60 Total Protein 7.0 Albumin 3.8 Globulin 3.2 Albumin/Globulin Ratio 1.2 02/06/17 11:39 WBC RBC Hgb Hct MCV MCH MCHC RDW Plt Count MPV Neut % (Auto) Lymph % (Auto) Dickey % (Auto) Eos % (Auto) Baso % (Auto) Neut # Lymph # Dickey # Eos # Baso # Sodium Potassium Chloride Carbon Dioxide Anion Gap BUN Creatinine Est GFR ( Amer) Est GFR (Non-Af Amer) POC Glucose (mg/dL) 328 H Random Glucose Calcium Total Bilirubin AST ALT Alkaline Phosphatase Total Protein Albumin Globulin Albumin/Globulin Ratio Assessment & Plan (1) Asthma exacerbation Status: Acute (2) Chronic obstructive lung disease Status: Chronic (3) Respiratory failure Status: Acute (4) Hypertension Status: Chronic (5) SOB (shortness of breath) Status: Acute
[2017-02-06] MEDS ORDERED: Home Med 1 UNIT (Diclofenac Sodium [Voltaren] 100 GM) TP SCH (18:00)
[2017-02-06] MEDS: Budesonide 0.5 mg/2 ml Inhal Susp UD INH SCH (22:08)
[2017-02-07] MEDS: (Novolog) Insulin Aspart, Recombinant 100 u/ml 10 ml vial SC SCH ×4 (07:48→21:20)
[2017-02-07] MEDS: Albuterol 0.083% Inhal Sol (2.5 mg/3 mL) UD INH PRN ×2 (08:51→18:32)
[2017-02-07] MEDS: Budesonide 0.5 mg/2 ml Inhal Susp UD INH SCH ×2 (08:51→18:32)
[2017-02-07] MEDS: Cefepime IV 1 gm in Dextrose 1 GM/50 ML BAG IVPB SCH ×2 (10:00→21:30)
[2017-02-07] MEDS: Enoxaparin 40 mg Syringe SC SCH (10:34)
[2017-02-07] MEDS: Sodium Chloride 0.45% 1,000 ML IV SCH (13:30)
--- NOTE | 2017-02-07 15:09 | PCM.URO ---
Urology Progress Note - Objective Lab Results Last 24 Hours: Laboratory Results - last 24 hr 02/06/17 02/06/17 02/06/17 17:29 20:10 21:29 POC Glucose (mg/dL) 217 H 218 H Stool Occult Blood Negative Intake & Output: Intake & Output 02/06/17 02/07/17 02/07/17 18:59 06:59 18:59 Output Total 750 Balance -750 Output: Urine 750 Urethral (De Guzman) 750 Vital Signs: Vital Signs - 24 hr 02/06/17 02/06/17 02/07/17 15:44 18:00 00:00 Temperature 97.8 F 97.4 F L Pulse Rate 84 88 83 Respiratory 20 20 Rate Blood Pressure 104/63 123/77 O2 Sat by Pulse 96 99 Oximetry 02/07/17 08:00 Temperature 97.4 F L Pulse Rate 94 H Respiratory 20 Rate Blood Pressure 120/79 O2 Sat by Pulse 100 Oximetry
[2017-02-07 16:31] LABS: RBC URINE 5 /hpf (0-3); URINE BACTERIA FEW (<OCC); URINE BILIRUBIN NEGATIVE (NEGATIVE); URINE BLOOD 1+ (NEGATIVE); URINE COLOR Straw (YELLOW); URINE GLUCOSE (UA) 1+ mg/dL (Normal); URINE KETONE NEGATIVE (NEGATIVE); URINE LEUKOCYTE ESTERASE 3+ Leu/uL (Negative); URINE PROTEIN NEGATIVE (NEGATIVE); URINE UROBILINOGEN NORMAL mg/dL (0.2-1.0); WBC URINE 96 /hpf (0-5)
--- NOTE | 2017-02-07 17:53 | CP.PCM.PN ---
Subjective - Date & Time of Evaluation Date of Evaluation: 02/07/17 Time of Evaluation: 17:50 - Subjective Subjective: diff breathing with wheeze today Objective - Vital Signs/Intake and Output Vital Signs (last 24 hours): Temp Pulse Resp BP Pulse Ox 96.7 F L 100 H 20 114/77 99 02/07/17 16:00 02/07/17 16:00 02/07/17 16:00 02/07/17 16:00 02/07/17 16:00 Intake and Output: 02/07/17 02/07/17 06:59 18:59 Output Total 750 Balance -750 - Medications Medications: Current Medications Acetaminophen (Tylenol 325mg Tab) 650 mg PO Q4H PRN PRN Reason: Fever >100.4 F Albuterol Sulfate (Albuterol 0.083% Inhal Gabbi (2.5 Mg/3 Ml) Ud) 2.5 mg INH Q6H PRN PRN Reason: Wheezing Last Admin: 02/07/17 08:51 Dose: 2.5 mg Amlodipine Besylate (Norvasc) 10 mg PO DAILY [facility] Last Admin: 02/07/17 10:33 Dose: 10 mg Budesonide (Pulmicort Respules) 0.5 mg INH RQ12 [facility] Last Admin: 02/07/17 08:51 Dose: 0.5 mg Enoxaparin Sodium (Lovenox) 40 mg SC DAILY [facility] Last Admin: 02/07/17 10:34 Dose: 40 mg Cefepime HCl (Maxipime Iv 1 Gm Premix) 1 gm in 50 mls @ 100 mls/hr IVPB Q12H [facility] Last Admin: 02/07/17 10:00 Dose: 100 mls/hr Sodium Chloride (Sodium Chloride 0.45%) 1,000 mls @ 40 mls/hr IV .Q24H [facility] Last Admin: 02/07/17 13:30 Dose: Not Given Insulin Aspart (Novolog) 0 unit SC ACHS [facility] PRN Reason: Protocol Last Admin: 02/07/17 17:38 Dose: 3 unit Memantine (Namenda) 5 mg PO BID [facility] Last Admin: 02/07/17 17:38 Dose: 5 mg Memantine (Namenda) 5 mg PO BID [facility] Last Admin: 02/07/17 17:38 Dose: 5 mg Metformin HCl (Glucophage) 1,000 mg PO BID [facility] Last Admin: 02/07/17 17:38 Dose: 1,000 mg Pneumococcal Polyvalent Vaccine (Pneumovax 23 Vaccine) 0.5 ml IM .ONCE ONE Stop: 02/08/17 10:01 Pregabalin (Lyrica) 75 mg PO Q8 [facility] Last Admin: 02/07/17 14:26 Dose: 75 mg - Labs Labs: 02/06/17 08:37 02/06/17 08:37 PT 12.6 SECONDS (9.7-12.2) H 02/05/17 08:23 INR 1.1 02/05/17 08:23 APTT 89 SECONDS (21-34) H 02/05/17 08:23 - Constitutional Appears: Chronically Ill - Head Exam Head Exam: ATRAUMATIC, NORMOCEPHALIC - Eye Exam Eye Exam: Normal appearance - ENT Exam ENT Exam: Mucous Membranes Moist - Respiratory Exam Respiratory Exam: Decreased Breath Sounds, Wheezes - Cardiovascular Exam Cardiovascular Exam: REGULAR RHYTHM, +S1, +S2 - GI/Abdominal Exam GI & Abdominal Exam: Normal Bowel Sounds - Rectal Exam Rectal Exam: Deferred - Neurological Exam Neurological Exam: Alert, Oriented x3 - Psychiatric Exam Psychiatric exam: Normal Affect, Normal Mood - Skin Skin Exam: Intact Assessment and Plan (1) Asthma exacerbation Status: Acute (2) Chronic obstructive lung disease Status: Chronic (3) Respiratory failure Status: Acute (4) Hypertension Status: Chronic (5) SOB (shortness of breath) Status: Acute
[2017-02-08] MEDS: Albuterol 0.083% Inhal Sol (2.5 mg/3 mL) UD INH PRN ×3 (00:22→13:14)
[2017-02-08] MEDS: Budesonide 0.5 mg/2 ml Inhal Susp UD INH SCH (07:15)
[2017-02-08 08:25] VITALS: RESP 20
[2017-02-08] MEDS: (Novolog) Insulin Aspart, Recombinant 100 u/ml 10 ml vial SC SCH ×2 (08:25→13:37)
[2017-02-08 08:33] LABS: HEMATOCRIT 34.4 % (34.0-47.0); MEAN CELL VOLUME 80.1 fL (81.0-99.0); MEAN CORPUSCULAR HEMOGLOBIN 25.8 pg (27.0-31.0); MEAN CORPUSCULAR HGB CONC 32.2 g/dL (33.0-37.0); RED CELL DISTRIBUTION WIDTH 14.8 % (11.5-14.5); WHITE BLOOD COUNT 10.6 K/uL (4.8-10.8)
[2017-02-08 08:51] LABS: CHLORIDE 99 mmol/L (98-107); POTASSIUM 4.4 mmol/L (3.6-5.2); SODIUM 136 mmol/L (132-148)
[2017-02-08 08:54] LABS: ALB/GLOB RATIO 0.9 (1.0-2.1); ALKALINE PHOSPHATASE 65 U/L (38-126); ALT/SGPT 29 U/L (9-52); AST/SGOT 14 U/L (14-36); BILIRUBIN,TOTAL 0.4 mg/dL (0.2-1.3); BLOOD UREA NITROGEN 15 mg/dL (7-17); CALCIUM 9.3 mg/dl (8.6-10.4); CARBON DIOXIDE 28 mmol/L (22-30); GFR AFRICAN-AMERICAN > 60; TOTAL PROTEIN 7.8 g/dL (6.3-8.3)
[2017-02-08] MEDS: Cefepime IV 1 gm in Dextrose 1 GM/50 ML BAG IVPB SCH (08:55)
[2017-02-08 09:02] LABS: GLUCOSE,RANDOM 444 mg/dL (65-105)
[2017-02-08] MEDS: Enoxaparin 40 mg Syringe SC SCH (09:28)
[2017-02-08] MEDS ORDERED: Pneumococcal 23-Valent Vaccine IM ONE (10:00)
[2017-02-08] MEDS ORDERED: Influenza Vaccine 60 mcg/0.5 mL SYR (4YR UP) IM ONE (10:00)
--- NOTE | 2017-02-08 13:02 | PN ---
DATE: SUBJECTIVE: I had spoken to her family for the past couple of days at length and yesterday. She is slowly improving. They wanted Urology evaluation, so I consulted Dr. Waggoner. She is also being seen by Infectious Disease and Pulmonary. She is alert in bed, comfortable, feeling much better, much more appropriate, and feels back to her old self. PHYSICAL EXAMINATION: VITAL SIGNS: She has 97.4 temperature, 83 pulse, 123/77 blood pressure, 20 respiratory rate, and 99% O2 sat nasal canula. HEENT: Head is atraumatic and normocephalic. Throat is moist. NECK: Supple. HEART: Regular rate. LUNGS: Decreased breath sounds, but clear. ABDOMEN: Soft, obese, and nontender. EXTREMITIES: No edema, but tender to palpation, which is her baseline. MEDICATIONS: She is on albuterol, Glucophage, Lovenox, Pravachol, Maxipime IV Namenda, Norvasc, NovoLog, Pulmicort, IV fluids, and Tylenol. LABORATORY DATA: Last blood sugar was 218, getting better. Awaiting for labs to come back from this morning as CBC and chemistry. White count is improving. ASSESSMENT AND PLAN: I do think she is getting much better. She was seen so far by Pulmonary, Infectious Disease, and awaiting Urology. May be one more day we can discharge her back to probably tomorrow if the labs are that much better. We can change as per Infectious Disease. Continue aggressive treatment and care on September. I will discuss with family and await labs. Evens Fraire DO MTDTan
--- NOTE | 2017-02-08 13:30 | DS ---
HISTORY OF PRESENT ILLNESS: I see her resting comfortably in bed. She is alert. She is back to her old self. She is eating. She is refusing blood test over the past 2 days. I have to get one more blood test on her to make sure I can discharge her today. There are no labs since . Her last blood sugar was 429. Stool was negative. Flu was negative. PHYSICAL EXAMINATION: VITAL SIGNS: 97.2 temperature, pulse 100, 131/70 blood pressure, 22 respiratory rate, and 95% O2 sat on 2 L nasal cannula. HEENT: Head is atraumatic and normocephalic. Throat is moist. NECK: Supple. HEART: Regular rate. LUNGS: Decreased breath sounds, but clear. ABDOMEN: Soft and morbidly obese. EXTREMITIES: No edema and is very tender. She has a De Guzman catheter in and she wants to remove and the urine is completely clear and yellow, good color. I have to try and get a blood test this morning to get a CBC and SMA-20 done. She was seen by Urology. She wants the catheter out. Overall, I think she is back to her baseline. I would like to see her back at the [facility] for continued treatment and care. She is here for urosepsis, short of breath, acute asthma, chronic obstructive pulmonary disease, and respiratory failure, but she is overall improved get a blood test today and find out white count is. I will discharge her, I leave that up to the nurse to help me with that, but I think she is back to her baseline clinically. Evens Fraire DO MTDD
[2017-02-08 15:59] VITALS: BP 125/84; PULSE 96; TEMP 97.6; O2SAT 99
--- NOTE | 2017-02-08 16:01 | CP.PCM.PN ---
Subjective - Date & Time of Evaluation Date of Evaluation: 02/08/17 Time of Evaluation: 16:00 - Subjective Subjective: breathing better today no wheeze currently Objective - Vital Signs/Intake and Output Vital Signs (last 24 hours): Temp Pulse Resp BP Pulse Ox 97.6 F 96 H 20 125/84 99 02/08/17 15:58 02/08/17 15:58 02/08/17 15:58 02/08/17 15:58 02/08/17 15:58 Intake and Output: 02/08/17 02/08/17 06:59 18:59 Intake Total 470 Output Total 1900 Balance -1430 - Medications Medications: Current Medications Acetaminophen (Tylenol 325mg Tab) 650 mg PO Q4H PRN PRN Reason: Fever >100.4 F Albuterol Sulfate (Albuterol 0.083% Inhal Gabbi (2.5 Mg/3 Ml) Ud) 2.5 mg INH Q6H PRN PRN Reason: Wheezing Last Admin: 02/08/17 13:14 Dose: 2.5 mg Amlodipine Besylate (Norvasc) 10 mg PO DAILY [facility] Last Admin: 02/08/17 09:31 Dose: 10 mg Budesonide (Pulmicort Respules) 0.5 mg INH RQ12 [facility] Last Admin: 02/08/17 07:15 Dose: 0.5 mg Enoxaparin Sodium (Lovenox) 40 mg SC DAILY [facility] Last Admin: 02/08/17 09:28 Dose: 40 mg Cefepime HCl (Maxipime Iv 1 Gm Premix) 1 gm in 50 mls @ 100 mls/hr IVPB Q12H [facility] Last Admin: 02/08/17 08:55 Dose: 100 mls/hr Sodium Chloride (Sodium Chloride 0.45%) 1,000 mls @ 40 mls/hr IV .Q24H [facility] Last Admin: 02/07/17 13:30 Dose: Not Given Insulin Aspart (Novolog) 0 unit SC ACHS [facility] PRN Reason: Protocol Last Admin: 02/08/17 13:37 Dose: 6 unit Memantine (Namenda) 5 mg PO BID [facility] Last Admin: 02/08/17 09:31 Dose: 5 mg Memantine (Namenda) 5 mg PO BID [facility] Last Admin: 02/08/17 09:31 Dose: Not Given Metformin HCl (Glucophage) 1,000 mg PO BID [facility] Last Admin: 02/08/17 09:28 Dose: 1,000 mg Montelukast Sodium (Singulair) 10 mg PO HS [facility] Last Admin: 02/07/17 21:25 Dose: 10 mg Pregabalin (Lyrica) 75 mg PO Q8 [facility] Last Admin: 02/08/17 13:37 Dose: 75 mg Sitagliptin Phosphate (Januvia) 50 mg PO DAILY [facility] Last Admin: 02/08/17 09:31 Dose: 50 mg - Labs Labs: 02/08/17 08:19 02/08/17 08:19 PT 12.6 SECONDS (9.7-12.2) H 02/05/17 08:23 INR 1.1 02/05/17 08:23 APTT 89 SECONDS (21-34) H 02/05/17 08:23 - Constitutional Appears: No Acute Distress - Head Exam Head Exam: ATRAUMATIC, NORMOCEPHALIC - Eye Exam Eye Exam: Normal appearance - ENT Exam ENT Exam: Mucous Membranes Moist - Respiratory Exam Respiratory Exam: Decreased Breath Sounds - Cardiovascular Exam Cardiovascular Exam: REGULAR RHYTHM, +S1, +S2 - GI/Abdominal Exam GI & Abdominal Exam: Normal Bowel Sounds - Rectal Exam Rectal Exam: Deferred - Neurological Exam Neurological Exam: Awake - Skin Skin Exam: Intact Assessment and Plan (1) Asthma exacerbation Status: Acute (2) Chronic obstructive lung disease Status: Chronic (3) Respiratory failure Status: Acute (4) Hypertension Status: Chronic (5) SOB (shortness of breath) Status: Acute
--- NOTE | 2017-02-08 17:10 | PCM.URO ---
Urology Progress Note - General General: No Complaints, Tolerating Diet - Subjective Abdominal Pain: No Flank Pain: No Voiding Well: Yes Hematuria: No Good Stream: Yes Dsypnea: No Chest Pain: No Fever & Chills: No - Objective Lab Results Last 24 Hours: Laboratory Results - last 24 hr 02/07/17 02/08/17 02/08/17 21:18 06:09 08:19 WBC 10.6 RBC 4.30 Hgb 11.1 Hct 34.4 MCV 80.1 L MCH 25.8 L MCHC 32.2 L RDW 14.8 H Plt Count 206 MPV 8.0 Sodium Potassium Chloride Carbon Dioxide Anion Gap BUN Creatinine Est GFR ( Amer) Est GFR (Non-Af Amer) POC Glucose (mg/dL) 321 H 429 H* Random Glucose Calcium Total Bilirubin AST ALT Alkaline Phosphatase Total Protein Albumin Globulin Albumin/Globulin Ratio 02/08/17 02/08/17 02/08/17 08:19 11:15 16:23 WBC RBC Hgb Hct MCV MCH MCHC RDW Plt Count MPV Sodium 136 Potassium 4.4 Chloride 99 Carbon Dioxide 28 Anion Gap 14 BUN 15 Creatinine 0.5 L Est GFR ( Amer) > 60 Est GFR (Non-Af Amer) > 60 POC Glucose (mg/dL) 481 H* 354 H Random Glucose 444 H* D Calcium 9.3 Total Bilirubin 0.4 AST 14 D ALT 29 Alkaline Phosphatase 65 Total Protein 7.8 Albumin 3.7 Globulin 4.1 H Albumin/Globulin Ratio 0.9 L Intake & Output: Intake & Output 02/07/17 02/08/17 02/08/17 18:59 06:59 18:59 Intake Total 470 630 Output Total 750 1900 500 Balance -750 -1430 130 Intake: Intake, IV Amount 320 330 Left Hand 320 330 Oral 150 300 Output: Urine 750 1900 500 Urethral (De Guzman) 750 1900 500 Other: # Voids Urine, Voided 2 Vital Signs: Vital Signs - 24 hr 02/07/17 02/08/17 02/08/17 23:59 08:24 15:58 Temperature 97.2 F L 97.9 F 97.6 F Pulse Rate 111 H 91 H 96 H Respiratory 22 20 20 Rate Blood Pressure 131/70 121/65 125/84 O2 Sat by Pulse 95 98 99 Oximetry - Physical Exam Abdominal Exam: Soft, Non-Tender, Non-Distended Back: No CVA Tenderness - Plan Intake & Output: Yes Additional Information: Imp: stable p catheter removal. pt is scheduled for discharge this pm - Date & Time of Note Date: 02/08/17 Time: 16:55
--- NOTE | 2017-02-08 18:18 | CP.PCM.PN ---
Subjective - Date & Time of Evaluation Date of Evaluation: 02/08/17 Time of Evaluation: 09:00 - Subjective Subjective: improving wbc coming down afeb Objective - Vital Signs/Intake and Output Vital Signs (last 24 hours): Temp Pulse Resp BP Pulse Ox 97.6 F 96 H 20 125/84 99 02/08/17 15:58 02/08/17 15:58 02/08/17 15:58 02/08/17 15:58 02/08/17 15:58 Intake and Output: 02/08/17 02/08/17 06:59 18:59 Intake Total 470 630 Output Total 1900 500 Balance -1430 130 - Medications Medications: Current Medications Acetaminophen (Tylenol 325mg Tab) 650 mg PO Q4H PRN PRN Reason: Fever >100.4 F Albuterol Sulfate (Albuterol 0.083% Inhal Gabbi (2.5 Mg/3 Ml) Ud) 2.5 mg INH Q6H PRN PRN Reason: Wheezing Last Admin: 02/08/17 13:14 Dose: 2.5 mg Amlodipine Besylate (Norvasc) 10 mg PO DAILY [facility] Last Admin: 02/08/17 09:31 Dose: 10 mg Budesonide (Pulmicort Respules) 0.5 mg INH RQ12 [facility] Last Admin: 02/08/17 07:15 Dose: 0.5 mg Enoxaparin Sodium (Lovenox) 40 mg SC DAILY [facility] Last Admin: 02/08/17 09:28 Dose: 40 mg Cefepime HCl (Maxipime Iv 1 Gm Premix) 1 gm in 50 mls @ 100 mls/hr IVPB Q12H [facility] Last Admin: 02/08/17 08:55 Dose: 100 mls/hr Sodium Chloride (Sodium Chloride 0.45%) 1,000 mls @ 40 mls/hr IV .Q24H [facility] Last Admin: 02/07/17 13:30 Dose: Not Given Insulin Aspart (Novolog) 0 unit SC ACHS [facility] PRN Reason: Protocol Last Admin: 02/08/17 13:37 Dose: 6 unit Memantine (Namenda) 5 mg PO BID [facility] Last Admin: 02/08/17 09:31 Dose: 5 mg Memantine (Namenda) 5 mg PO BID [facility] Last Admin: 02/08/17 09:31 Dose: Not Given Metformin HCl (Glucophage) 1,000 mg PO BID [facility] Last Admin: 02/08/17 09:28 Dose: 1,000 mg Montelukast Sodium (Singulair) 10 mg PO HS [facility] Last Admin: 02/07/17 21:25 Dose: 10 mg Pregabalin (Lyrica) 75 mg PO Q8 [facility] Last Admin: 02/08/17 13:37 Dose: 75 mg Sitagliptin Phosphate (Januvia) 50 mg PO DAILY [facility] Last Admin: 02/08/17 09:31 Dose: 50 mg - Labs Labs: 02/08/17 08:19 02/08/17 08:19 PT 12.6 SECONDS (9.7-12.2) H 02/05/17 08:23 INR 1.1 02/05/17 08:23 APTT 89 SECONDS (21-34) H 02/05/17 08:23 - Constitutional Appears: Non-toxic, Confused, Chronically Ill - Head Exam Head Exam: NORMOCEPHALIC - Eye Exam Eye Exam: PERRL. absent: Scleral icterus - ENT Exam ENT Exam: Mucous Membranes Dry, Normal External Ear Exam - Neck Exam Neck Exam: absent: Lymphadenopathy - Respiratory Exam Respiratory Exam: Decreased Breath Sounds - Cardiovascular Exam Cardiovascular Exam: REGULAR RHYTHM - GI/Abdominal Exam GI & Abdominal Exam: Distended, Soft - Rectal Exam Rectal Exam: Deferred - Exam Exam: NORMAL INSPECTION - Extremities Exam Extremities Exam: absent: Pedal Edema - Back Exam Back Exam: absent: CVA tenderness (L), CVA tenderness (R) Assessment and Plan (1) Asthma exacerbation Status: Acute (2) Sepsis Status: Acute (3) Urinary tract infection Status: Acute (4) COPD (chronic obstructive pulmonary disease) Status: Acute (5) Dehydration Status: Acute - Assessment and Plan (Free Text) Assessment: blood and urine c/s neg follow up with gu
--- NOTE | 2017-02-09 16:50 | CARD ---
APPROVED REPORT EKG Measurement Heart [id number] <Conclusion> Sinus tachycardia Minimal voltage criteria for LVH, may be normal variant Borderline ECG
== END 2017-02-08 18:19 | DRG 871 ==
LOC: C.ER 07:16 → C.9E 11:50 → C.5S 13:36
PROVIDERS: ADMIT Family Medicine; ATTEND Family Medicine
DX: A41.9 Sepsis, unspecified organism (principal); J96.00 Acute respiratory failure, unspecified whether with hypoxia or hypercapnia; J45.901 Unspecified asthma with (acute) exacerbation; N39.0 Urinary tract infection, site not specified; F03.90 Unspecified dementia, unspecified severity, without behavioral disturbance, psychotic disturbance, mood disturbance, and anxiety; E86.0 Dehydration; E11.9 Type 2 diabetes mellitus without complications; I10 Essential (primary) hypertension; F41.9 Anxiety disorder, unspecified; Z82.49 Family history of ischemic heart disease and other diseases of the circulatory system; Z87.440 Personal history of urinary (tract) infections; Z96.611 Presence of right artificial shoulder joint; Z96.651 Presence of right artificial knee joint